=== PATIENT | female | born 1975 | race Caucasian/White ===

== ENCOUNTER 2023-11-09 19:02 | Inpatient (IN) ==
--- NOTE | 2023-11-09 20:07 | Emergency Department Note ---
Impression & Plan Perirectal abscess, Leukocytosis, Chronic diarrhea ED Provider Note NAME: LUIS CARLOS REAGAN AGE: 48 SEX: F : 1975 ARRIVES VIA: Walk-In INFORMANT: Patient ED PROVIDER(S): Jamar Rosario MD CHIEF COMPLAINT: Rectal pain. PLAN: Disposition: Admit MEDICAL DECISION MAKING: The patient is a pleasant 48-year-old woman with a past medical history of anxiety, HTN, HLD, PUD, who presents to emergency department via walk-in for evaluation of worsening left perianal/gluteal pain that has been evolving over the past week where she reports feeling a tearing/burning sensation last week where she felt "something went wrong" when moving her bowels which she admits chronically is loose but does admit to having some straining at that time. Since then she has had worsening pain in the region and thought she felt something sticking out from her anus which she wondered if this could be an external hemorrhoids. However she has felt this pain become worse and due to inability to tolerate this pain presents for evaluation today. She reports she thought she had a fever at one point but did not have a temperature when she measured it. She denies vomiting. She reports she has not moved her bowels since yesterday morning which is atypical for her she will do this several times a day since having her gallbladder out remotely. She denies history of similar symptoms. She denies history of diabetes. On evaluation the patient is uncomfortable no distress, afebrile heart in the 110s and blood pressure 150s/80s. The patient was examined with female RN assisting/hris analyst. Patient has erythema, warmth and tenderness to an approximate 20 cm region of the medial aspect of her left gluteal region extending into the perineum where there is an approximate 7 cm area of induration and underlying fluctuance tender to touch. There is no crepitus. WBC 14.3 K with neutrophil predominance but no left shift. Hemoglobin and platelets within normal limits. Chemistry without metabolic acidosis. Electrolytes LFTs unremarkable. TSH is 4.9 however free T4 within normal limits. hCG negative. UA without evidence of infection. CT of the abdomen pelvis was performed and this demonstrated a 5 x 4.7 x 3.5 cm fluid collection with mild rim enhancement along the medial margin interpreted as probable phlegmon/early abscess. There is moderate surrounding cellulitis. No intrapelvic extension is noted. Likely right lower lobe atelectasis is described. Empiric treatment initiated after obtaining blood cultures with IV Zosyn and daptomycin. Analgesia provided with IV APAP and morphine. Case was discussed with Erickson Perez, general surgery PAC with Dr. Marinelli, general surgery on-call. Appreciate consultation and recommendations. Patient can be admitted to medicine service for IV antibiotics. They will follow the patient for possible surgical drainage in the morning. Patient to remain NPO. Case was discussed with Dr. [facility], who will evaluate the patient for admission. Further management per admitting team. Triage Nursing notes reviewed and agree them. Prior/external medical records reviewed Vital Signs: reviewed Differential diagnosis: Cellulitis, abscess, MRSA infection, necrotizing fasciitis, dermatitis, drug eruption, allergic reaction, as well as other pathologies. ER treatment provided: See below. Diagnostics interpreted by me: ECG: Sinus tachycardia, 105 bpm, no ectopy, nonspecific interventricular conduction block. No overt ST elevation or depression, QTc 507, QRS 126. Cardiac Monitoring: An order for continuous cardiac monitoring was placed and demonstrated Sinus tachycardia, 105 bpm, no ectopy. Laboratory studies: See below Imaging studies: See below Consultation(s): Erickson Perez, general surgery PAC with Dr. Marinelli, general surgery on-call. [facility]. HPI: The patient is a pleasant 48-year-old woman with a past medical history of anxiety, HTN, HLD, PUD, who presents to emergency department via walk-in for evaluation of worsening left perianal/gluteal pain that has been evolving over the past week where she reports feeling a tearing/burning sensation last week where she felt "something went wrong" when moving her bowels which she admits chronically is loose but does admit to having some straining at that time. Since then she has had worsening pain in the region and thought she felt something sticking out from her anus which she wondered if this could be an external hemorrhoids. However she has felt this pain become worse and due to inability to tolerate this pain presents for evaluation today. She reports she thought she had a fever at one point but did not have a temperature when she measured it. She denies vomiting. She reports she has not moved her bowels since yesterday morning which is atypical for her she will do this several times a day since having her gallbladder out remotely. She denies history of similar symptoms. She denies history of diabetes. ROS: See above HPI for pertinent positives & negatives. A total of 10 systems reviewed and were otherwise negative. VITALS:See Below PHYSICAL EXAMINATION: GENERAL: Awake, alert, in no distress HENT: Normocephalic, atraumatic. Oropharynx with dry mucous membranes and otherwise unremarkable. EYES: Normal conjunctiva. Sclera non-icteric. NECK: Supple. No nuchal rigidity. FROM. No JVD. RESPIRATORY: Clear to auscultation. CARDIAC: Tachycardic rate, normal rhythm. Extremities warm and well perfused. Pulses equal. ABDOMEN: Soft, non-distended. No tenderness to palpation. No rebound or guarding. No masses. PERINEUM: Exam with female RN assisting/hris analyst. Erythema, warmth and tenderness to an approximate 20 cm region of the medial aspect of her left gluteal region extending into the perineum where there is an approximate 7 cm area of induration and underlying fluctuance tender to touch. There is no crepitus. MUSCULOSKELETAL: Chest examination reveals no tenderness. The back is symmetrical on inspection without obvious abnormality. There is no CVA tenderness to palpation. No joint edema. LOWER EXTREMITIES: Calves are equal size bilaterally and non-tender. No edema. No discoloration. NEURO: Normal sensorium. No sensory or motor deficits noted. SKIN: No rash or jaundice noted. Jamar Rosario MD Past Med/Surg History Problem List (Updated 11/10/23 @ 00:33 by Jamar Rosario MD) Chronic diarrhea (Acute) Leukocytosis (Acute) Perirectal abscess (Acute) Medical History Body mass index [BMI] 35.0-35.9, adult Stomach ulcer Nicotine dependence, cigarettes, with unspecified nicotine-induced disorders Hypothyroidism Hypertension Surgical History Hx of cholecystectomy Hx of lithotripsy Family History Grandmother (Maternal) Hypertension Diabetes Grandfather (Maternal) Hypertension Mother Hypertension Social History (Updated 11/10/23 @ 01:20 by Jamar Rosario MD) Smoking Status: Current every day smoker Hx Alcohol Use: No Hx Substance Use: No Preferred Language: Emirati Communication Ability: Effective Copy Room Technician Required: No marital status: Single Current Living Situation: Family Feels Safe at Home: Yes Assistive Devices: Glasses Allergies Allergies Allergy/AdvReac Type Severity Reaction Status Date / Time No Known Allergies Allergy Unverified 11/10/23 00:15 Home Meds Home Medications Medication Instructions Recorded Confirmed lorazepam 0.5 mg tablet 0.5 - 1 mg PO HS PRN anxiety 03/29/19 11/10/23 famotidine 20 mg tablet 20 mg PO HS 11/10/23 11/10/23 ibuprofen 200 mg tablet (Advil) 800 mg PO Q4 PRN Pain 11/10/23 11/10/23 losartan 50 mg tablet 50 mg PO DAILY 11/10/23 11/10/23 Results & Data (ED) Vital Signs Vital Signs - 24 hr 11/09/23 19:19 11/09/23 22:04 11/09/23 22:55 Temperature 36.8 C Temperature Source Temporal Artery Scan Pulse Rate 110 H 81 85 Pulse Rate [Apical] Respiratory Rate 18 20 Respiratory Effort / Characteristics Non-Labored Respiratory Depth Normal Blood Pressure 159/85 H 108/72 Blood Pressure [Right Arm] Blood Pressure Mean 109 84 Blood Pressure Mean [Right Arm] Pulse Oximetry 100 95 Oxygen Delivery Method Room Air Sepsis Recent Fever Within 48 Hours No Sepsis New/Unexplained Change in Mental Status No Sepsis Action Taken by Nursing No Action Required 11/09/23 23:01 11/09/23 23:04 Temperature Temperature Source Pulse Rate 86 Pulse Rate [Apical] 86 Respiratory Rate 18 18 Respiratory Effort / Characteristics Respiratory Depth Blood Pressure Blood Pressure [Right Arm] 106/76 Blood Pressure Mean Blood Pressure Mean [Right Arm] 86 Pulse Oximetry 98 98 Oxygen Delivery Method Room Air Sepsis Recent Fever Within 48 Hours Sepsis New/Unexplained Change in Mental Status Sepsis Action Taken by Nursing Laboratory Data Attestation: I reviewed the patient's lab results. 11/09/23 20:30 11/09/23 20:30 Lab Results 11/09/23 11/09/23 Range/Units 20:30 20:48 WBC 14.39 H (4.8-10.8) K/ul RBC 4.22 (4.20-5.40) M/uL Hgb 12.4 (12.0-16.0) g/dl Hct 36.6 L (37.0-47.0) % MCV 86.7 (80.0-100.0) fL MCH 29.4 (25.0-34.0) pg MCHC 33.9 (32.0-36.0) g/dL RDW Std Deviation 40.2 (36.4-46.3) fL RDW Coeff of Alon 12.8 (11.5-14.5) % Plt Count 360 (130-400) K/uL MPV 10.0 (9.4-12.4) fL Immature Gran % (Auto) 0.6 % Neut % (Auto) 80.4 % Lymph % (Auto) 11.8 % [place] % (Auto) 6.2 % Eos % (Auto) 0.7 % Baso % (Auto) 0.3 % Neut # (Auto) 11.58 H (1.40-6.50) K/uL Lymph # (Auto) 1.70 (1.20-3.40) K/uL [place] # (Auto) 0.89 H (0.11-0.59) K/uL Eos # (Auto) 0.10 (0.00-0.50) K/uL Baso # (Auto) 0.04 (0.00-0.20) K/uL Immature Gran # (Auto) 0.08 (0.01-0.20) K/uL Sodium 137 (136-145) mmol/L Potassium 3.3 L (3.5-5.1) mmol/L Chloride 108 H (98-107) mmol/L Carbon Dioxide 22 (21-32) mmol/L Anion Gap 7 (3-11) BUN 8 (6-23) mg/dl Creatinine 0.78 (0.6-1.2) mg/dl Est Cr Clr Drug Dosing 95.6 ml/min Est GFR ( Amer) 102.7 ml/min Est GFR (Non-Af Amer) 88.6 ml/min BUN/Creatinine Ratio 10.3 (10-20) Glucose 85 (70-99(Fasting)) mg/dl Lactate 1.1 (0.4-2.0) mmol/L Calcium 8.9 (8.6-10.3) mg/dl Total Bilirubin 0.4 (0.2-1.0) mg/dl AST 17 (13-39) U/L ALT 17 (7-52) U/L Alkaline Phosphatase 53 (34-104) U/L Total Protein 6.8 (6.0-8.3) gm/dl Albumin 3.9 (3.4-5.0) gm/dl Globulin 2.9 (2.5-4.0) gm/dl Albumin/Globulin Ratio 1.3 (0.9-2) Procalcitonin 0.05 (0-0.5) ng/ml TSH 4.955 H (0.300-4.500) uIu/ml Free T4 0.79 (0.61-1.60) ng/dl HCG, Qual Negative (Negative) Urine Color Yellow Urine Appearance Clear (Clear) Urine pH 6.0 (4.5-7.5) Ur Specific [place] 1.005 (1.000-1.030) Urine Protein Negative (Negative) Urine Glucose (UA) Negative (Negative) Urine Ketones Negative (Negative) Urine Blood Negative (Negative) Urine Nitrite Negative (Negative) Urine Bilirubin Negative (Negative) Urine Urobilinogen Negative (Negative) Ur Leukocyte Esterase Negative (Negative) Administered Medications Sodium Chloride (Nss) 1,000 mls @ 125 mls/hr IV .Q8H JOHAN Stop: 12/10/23 00:24 Last Admin: 11/10/23 00:41 Dose: 125 mls/hr Documented By: RAFI Discontinued Medications Hydromorphone HCl (Hydromorphone Inj 0.5 Mg/0.5 Ml Syr) 0.5 mg IV NOW STA Stop: 11/09/23 23:51 Last Admin: 11/10/23 00:02 Dose: 0.5 mg Documented By: RAFI Sodium Chloride (Nss) 1,000 mls @ 999 mls/hr IV .Q1H1M JOHAN Stop: 11/09/23 21:30 Last Infusion: 11/09/23 22:06 Dose: Infused Documented By: Admin: 11/09/23 20:48 Dose: 999 mls/hr Documented By: LYRIC Acetaminophen (Ofirmev) 1,000 mg in 100 mls @ 400 mls/hr IV NOW STA Stop: 11/09/23 20:34 Last Infusion: 11/09/23 21:17 Dose: Infused Documented By: Admin: 11/09/23 20:42 Dose: 400 mls/hr Documented By: LYRIC Piperacillin Sod/Tazobactam Sod (Zosyn) 4.5 gm in 100 mls @ 200 mls/hr IV NOW ONE Stop: 11/09/23 20:52 Last Infusion: 11/09/23 21:32 Dose: Infused Documented By: Admin: 11/09/23 20:57 Dose: 200 mls/hr Documented By: LYRIC Vancomycin HCl 2,250 mg/ (Sodium Chloride) 545 mls @ 200 mls/hr IV NOW ONE Stop: 11/09/23 23:06 Last Admin: 11/09/23 22:27 Dose: 200 mls/hr Documented By: LYRIC Ioversol (Optiray 320 100ml) 94 ml IV ONCE ONE Stop: 11/09/23 21:58 Last Admin: 11/09/23 21:57 Dose: 94 ml Documented By: RUDDY Ketorolac Tromethamine (Ketorolac 30 Mg/Ml Vial) 30 mg IV NOW ONE Stop: 11/10/23 00:10 Last Admin: 11/10/23 00:36 Dose: 30 mg Documented By: RAFI Morphine Sulfate (Morphine Sulfate 4 Mg/Ml 1 Ml Carp\\Vial) 4 mg IV NOW STA Stop: 11/09/23 20:21 Last Admin: 11/09/23 20:42 Dose: 4 mg Documented By: LYRIC Morphine Sulfate (Morphine Sulfate 4 Mg/Ml 1 Ml Carp\\Vial) 4 mg IV NOW STA Stop: 11/09/23 22:20 Last Admin: 11/09/23 22:25 Dose: 4 mg Documented By: LYRIC Potassium Chloride (Potassium Chloride Crtab 20 Meq Tabcr) 40 meq PO NOW STA Stop: 11/10/23 00:10 Last Admin: 11/10/23 00:36 Dose: 40 meq Documented By: RAFI Imaging Data Radiologist's Impression: Abdomen/Pelvis CT 11/09/23 20:24 Exam(s): CT ABDOMEN + PELVIS With Contrast IV Amt: 94 ml optiray 320 EXAM: CT Abdomen and Pelvis With Intravenous Contrast CLINICAL HISTORY: Reason for exam: left ning-rectal/anal abscess, cellulitis. TECHNIQUE: Axial computed tomography images of the abdomen and pelvis with intravenous contrast. CTDI is 27.73 mGy and DLP is 1683.66 mGy-cm. Automated exposure control was utilized for the study. A dose lowering technique was utilized adhering to the principles of ALARA. CONTRAST: Patient received 94 ml optiray 320 of IV contrast COMPARISON: None. FINDINGS: Lung bases: Mild right lower lobe atelectasis or infiltrate, cannot rule out pneumonia. Liver: Unremarkable. Gallbladder and bile ducts: No ductal dilation. Pancreas: No ductal dilation. Spleen: Unremarkable. Adrenals: Unremarkable. Kidneys and ureters: Subtle hypodensity right upper pole medially, nonspecific, statistically would reflect an early/developing cyst. Neoplasm not excluded. Consider ultrasound confirmation. No pyelonephritis or hydronephrosis. Stomach and bowel: A few fluid levels are seen, though overall the bowel is unremarkable. No obstruction. Appendix: Normal. Intraperitoneal space: No free air or fluid. Bones/joints: No acute fracture. Soft tissues: In the left infra-gluteal subcutaneous fat, there is a 5 x 4.7 x 3.5 cm fluid collection with mild rim enhancement along the medial margin, probable phlegmon/early abscess. Moderate surrounding cellulitis. No intrapelvic extension. Vasculature: No aortic aneurysm. Lymph nodes: No enlarged lymph nodes. Bladder: No stones. Reproductive: Unremarkable as visualized. IMPRESSION: 1. 5 cm fluid collection left medial and inferior buttock, compatible with phlegmon/early abscess. 2. No acute intra-abdominal or intrapelvic abnormality. 3. Mild right lower lobe atelectasis or infiltrate, cannot rule out pneumonia. 4. Hypodensity in the right kidney is nonspecific, statistically would reflect a cyst, though neoplasm not excluded. Ultrasound confirmation may be considered. Electronically signed by: Jennifer Rangel M.D. 11/09/23 22:40 PM Discharge Plan Visit Data Chief Complaint: Rectal Pain Stated Complaint: PARINEAL HERNIA/NOW HANGING BELOW L BUTTOCKS ED Provider: Jamar Rosario Discharge Problem: Perirectal abscess, Leukocytosis, Chronic diarrhea Discharge Instructions Interventions: ED Discharge Assessment Last Done: 11/10/23 00:26 Discharge Problem: Leukocytosis Qualifiers: Leukocytosis type: unspecified Qualified Code(s): D72.829 - Elevated white blood cell count, unspecified
[2023-11-09] MEDS ORDERED: VANCOMYCIN CONSULT ACTIVE PRN (20:23)
[2023-11-09] MEDS: ACETAMINOPHEN 1,000 MG/100 ML VIAL IV STA (20:42)
[2023-11-09] MEDS: MoRPHine SULFATE 4 MG/ML 1 ML CARP\\VIAL IV STA ×2 (20:42→22:25)
[2023-11-09] MEDS: SODIUM CHLORIDE 0.9% 1,000 ML IV SCH (20:48)
[2023-11-09] MEDS: PIPERACILLIN/TAZOBACTAM 4.5 GM/100 ML BAG IV ONE (20:57)
[2023-11-09 21:26] LABS: Appearance Urine Clear (Clear); Bilirubin Urine Negative (Negative); Blood Urine Negative (Negative); Color Urine Yellow; Glucose Urine UA Negative (Negative); Ketones Urine Negative (Negative); Leukocyte Esterase Urine Negative (Negative); Nitrite Urine Negative (Negative); Protein Urine Negative (Negative); Specific Gravity Urine 1.005 (1.000-1.030); Urobilinogen Urine Negative (Negative)
[2023-11-09 21:28] LABS: Albumin Globulin Ratio 1.3 (0.9-2); Albumin Level 3.9 gm/dl (3.4-5.0); BUN Creatinine Ratio 10.3 (10-20); Bilirubin,Total 0.4 mg/dl (0.2-1.0); Calcium 8.9 mg/dl (8.6-10.3); Creatinine Clr Calc Pharmacy 95.6 ml/min; Est GFR (African American) 102.7 ml/min; Est GFR (Non-African American) 88.6 ml/min; Globulin 2.9 gm/dl (2.5-4.0); Potassium 3.3 mmol/L (3.5-5.1); Total Protein 6.8 gm/dl (6.0-8.3)
[2023-11-09 21:30] LABS: Pregnancy Test, Serum Negative (Negative)
[2023-11-09 21:44] LABS: Thyroid Stimulating Hormone 4.955 uIu/ml (0.300-4.500)
[2023-11-09 21:56] LABS: Basophils # (auto) 0.04 K/uL (0.00-0.20); Basophils % (auto) 0.3 %; Eosinophils % (auto) 0.7 %; Hematocrit (blood only) 36.6 % (37.0-47.0); Hemoglobin 12.4 g/dl (12.0-16.0); Immature Granulocytes # (auto) 0.08 K/uL (0.01-0.20); Immature Granulocytes % (auto) 0.6 %; Lymphocytes % (auto) 11.8 %; Mean Corpuscular Hemoglobin 29.4 pg (25.0-34.0); Mean Corpuscular Hgb Conc 33.9 g/dL (32.0-36.0); Mean Corpuscular Volume 86.7 fL (80.0-100.0); Monocytes # (auto) 0.89 K/uL (0.11-0.59); Monocytes % (auto) 6.2 %; Neutrophils # (auto) 11.58 K/uL (1.40-6.50); Neutrophils % (auto) 80.4 %; Platelet Count 360 K/uL (130-400); RDW Coefficient of Variation 12.8 % (11.5-14.5); RDW Standard Deviation 40.2 fL (36.4-46.3); Red Blood Count 4.22 M/uL (4.20-5.40); White Blood Count 14.39 K/ul (4.8-10.8)
[2023-11-09] MEDS: OPTIRAY 320 100ml IV ONE (21:57)
[2023-11-09 22:20] LABS: T4 Free Thyroxine 0.79 ng/dl (0.61-1.60)
[2023-11-09] MEDS: VANCOMYCIN HCL 2,250 MG in SODIUM CHLORIDE 0.9% 500 ML IV ONE (22:27)
--- NOTE | 2023-11-09 22:41 | CT Scan Report ---
Exam(s): CT ABDOMEN + PELVIS With Contrast IV Amt: 94 ml optiray 320 EXAM: CT Abdomen and Pelvis With Intravenous Contrast CLINICAL HISTORY: Reason for exam: left ning-rectal/anal abscess, cellulitis. TECHNIQUE: Axial computed tomography images of the abdomen and pelvis with intravenous contrast. CTDI is 27.73 mGy and DLP is 1683.66 mGy-cm. Automated exposure control was utilized for the study. A dose lowering technique was utilized adhering to the principles of ALARA. CONTRAST: Patient received 94 ml optiray 320 of IV contrast COMPARISON: None. FINDINGS: Lung bases: Mild right lower lobe atelectasis or infiltrate, cannot rule out pneumonia. Liver: Unremarkable. Gallbladder and bile ducts: No ductal dilation. Pancreas: No ductal dilation. Spleen: Unremarkable. Adrenals: Unremarkable. Kidneys and ureters: Subtle hypodensity right upper pole medially, nonspecific, statistically would reflect an early/developing cyst. Neoplasm not excluded. Consider ultrasound confirmation. No pyelonephritis or hydronephrosis. Stomach and bowel: A few fluid levels are seen, though overall the bowel is unremarkable. No obstruction. Appendix: Normal. Intraperitoneal space: No free air or fluid. Bones/joints: No acute fracture. Soft tissues: In the left infra-gluteal subcutaneous fat, there is a 5 x 4.7 x 3.5 cm fluid collection with mild rim enhancement along the medial margin, probable phlegmon/early abscess. Moderate surrounding cellulitis. No intrapelvic extension. Vasculature: No aortic aneurysm. Lymph nodes: No enlarged lymph nodes. Bladder: No stones. Reproductive: Unremarkable as visualized. IMPRESSION: 1. 5 cm fluid collection left medial and inferior buttock, compatible with phlegmon/early abscess. 2. No acute intra-abdominal or intrapelvic abnormality. 3. Mild right lower lobe atelectasis or infiltrate, cannot rule out pneumonia. 4. Hypodensity in the right kidney is nonspecific, statistically would reflect a cyst, though neoplasm not excluded. Ultrasound confirmation may be considered. Electronically signed by: Jennifer Rangel M.D. 11/09/23 22:40 PM
--- NOTE | 2023-11-09 23:17 | Surgery Consultation ---
Date of Consultation November 09, 2023 Assessment & Plan (1) Perirectal abscess: I discussed with the treating emergency room physician and the patient is being admitted on the hospital service. From surgical perspective we recommend the following: Provide analgesics Provide antiemetics Provide IV fluid for hydration Antibiotics in the form of vancomycin and Zosyn have been initiated. These antibiotic should continue. Appropriate cultures have been obtained and antibiotics be tailored based on these results I think would be acceptable for patient have clear liquids at the present time, but she should be made n.p.o. after midnight tonight I am tentatively going to place the patient on the operating room schedule on 11/10/[address] Marinelli to perform incision and drainage of his perirectal abscess. If incision and drainage is performed appropriate cultures of this collection can be obtained as well. At the present time the patient is nontoxic-appearing. She is normotensive without tachycardia or fever. She does exhibit a slight leukocytosis but she does not have an elevated lactic acid level or acute kidney injury. Additional recommendations with forthcoming based on her clinical course as unfolds and the findings of any procedural intervention that is performed Would recommend utilizing only SCDs for DVT prevention, no chemical means until any planned procedures are performed History of Present Illness Reason for Consultation: Perirectal abscess History of Present Illness This is a 48-year-old female who presented to the emergency department [facility] secondary to rectal/buttock pain. The patient notes that approximately 12 days ago she noticed a small lump on the left side of her buttocks near her anus that began shortly after she began her menstrual cycle. Patient notes that she has had a previous cholecystectomy and since that time she has diarrhea in the morning and notes that since this problem again she has been having episodes of diarrhea alternating with periods of constipation. Patient notes that she tried several [id number] remedies such as Preparation H and sitz bath's with no avail in relieving the symptomatology of this structure. She notes over the ensuing 12 days that the area in question is gotten larger and more painful. Patient has not taken her temperature and therefore is unsure if she has had any fevers but has felt warm and cold at times. She denies any rigors. She notes that she is not diabetic and she has never had such an issue like this before. Since arrival to hospital patient has had labs and imaging which independent reviewed. CBC revealed white blood cell count was elevated 14.3. Hemoglobin was normal and hematocrit was slightly low at 36.6. Platelet count was 360,000. Chemistry profile shows sodium is 137 and her potassium was 3.3. BUN and creatinine were both noted to be normal. Lactic acid was nonelevated at 1.1. There is no elevation of patient's LFTs. Urinalysis was not indicative of infection. The patient has undergone a CT scan of the abdomen and pelvis. This showed that patient had a 5 x 4.7 x 3.5 cm fluid collection with some mild rim enhancement along the medial margin of the left infra gluteal area. This collection was compatible with a phlegmon/early abscess. There is no intrapelvic extension of this collection. Of note, the patient has also had a test which is negative. At the time my interview the patient was resting comfortably bed and she was in no distress. Allergies Allergy/AdvReac Type Severity Reaction Status Date / Time No Known Allergies Allergy Unverified 11/10/23 00:15 Home Medications Medication Instructions Recorded Confirmed Type lorazepam 0.5 mg tablet 0.5 - 1 mg PO HS PRN anxiety 03/29/19 11/10/23 History famotidine 20 mg tablet 20 mg PO HS 11/10/23 11/10/23 History ibuprofen 200 mg tablet (Advil) 800 mg PO Q4 PRN Pain 11/10/23 11/10/23 History losartan 50 mg tablet 50 mg PO DAILY 11/10/23 11/10/23 History Patient History Medical History Body mass index [BMI] 35.0-35.9, adult Stomach ulcer Nicotine dependence, cigarettes, with unspecified nicotine-induced disorders Hypothyroidism Hypertension Surgical History Hx of cholecystectomy Hx of lithotripsy Family History Grandmother (Maternal) Hypertension Diabetes Grandfather (Maternal) Hypertension Mother Hypertension Social History (Updated 11/10/23 @ 01:20 by Jamar Rosario MD) Smoking Status: Current every day smoker Hx Alcohol Use: No Hx Substance Use: No Preferred Language: Yemeni Communication Ability: Effective Associate Product Manager Required: No marital status: Single Current Living Situation: Family Other Information That Helps Us Care for You: No Feels Safe at Home: Yes Safety Concerns: Feels Safe At This Time Assistive Devices: None Physical Exam Physical Exam: With a female nurse market research specialist present I examined the patient's rectal area. On the left medial part of patient's buttocks just lateral to the anus she had a large area of induration that was noted to be erythematous with some slight warmth. There is no crepitus noted in the soft tissue. There is no open areas or areas of drainage. The area was exquisitely tender to palpation. I did not perform a digital rectal exam secondary to pain the patient was experiencing. Constitutional: WD/WN, vitals as above Eyes: Wears glasses ENMT: Ears: no hearing impairment and no external ear abnormality Mouth: no oropharynx abnormality Neck: trachea midline Respiratory: normal respiratory effort; no respiratory distress and no labored breathing Cardiovascular: Rate/Rhythm: regular rate and regular rhythm Gastrointestinal (Abdomen): Abdomen is soft and nontender Musculoskeletal: No calf tenderness Skin: no rashes Neurologic: moves all extremities Psychiatric: A+Ox3, euthymic affect Results & Data Vital Signs (Past 12 Hours) Vital Signs Temp Pulse Pulse Resp BP BP Pulse Ox 11/09/23 23:04 86 18 98 11/09/23 23:01 86 18 106/76 98 11/09/23 22:55 85 11/09/23 22:04 81 20 108/72 95 11/09/23 19:19 36.8 C 110 H 18 159/85 H 100 O2 Del Method 11/09/23 23:04 11/09/23 23:01 Room Air 11/09/23 22:55 11/09/23 22:04 11/09/23 19:19 Room Air PG Care Time/CCT Total # of Minutes Spent Total Time Spent with Patient: Total time spent is greater than 50% in coordination of care (as documented) at patient's floor/unit and/or counseling patient: Coding Level of Care Code 97608 IN/OBS CONSULT LVL 5,80M Diagnoses Perirectal abscess K61.1
[2023-11-10] MEDS: HYDROmorphone INJ 0.5 MG/0.5 ML SYR IV STA (00:02)
[2023-11-10] MEDS ORDERED: POLYETHYLENE (MIRALAX) 17 GM PACK PO PRN (00:25)
[2023-11-10] MEDS ORDERED: ACETAMINOPHEN 1,000 MG/100 ML VIAL IV PRN (00:25)
--- NOTE | 2023-11-10 00:28 | History & Physical Report ---
Date of Service November 09, 2023 Assessment & Plan (1) Perirectal abscess: Plan: 48-year-old female with past medical history significant for hypertension, Kidney stones, presents with pain in her rectal region and found to have a perirectal abscess. Patient states about 11 days ago she had diarrhea and strained .Then she noticed some lump joy the anal region and she thought it could be hemorrhoids. And she was applying lidocaine and she was doing sitz baths but was not helping. Since Thursday the pain got worse and the swelling was getting bigger. And since Thursday 4 AM she has severe pain in the buttock region not able to ambulate because of pain and feeling short of breath because of pain. She did not move her bowels since last Thursday which is unusual because she generally moves 4-5 bowel movements every day. No nausea. No chest pain. no headache. No blurred vision. No runny nose or sore throat or cough. Feeling hot and cold. No abdominal pain. When she was moving bowels she has some mild discomfort but no significant pain. Has mild discomfort while micturating. Denies any hematuria. Did not noticed any blood in the stools. Currently hemodynamics are okay. perirectal abscess Ct scan:5 cm fluid collection left medial and inferior buttock, compatible with phlegmon/early abscess. empiric antibiotics IV Zosyn and IV vancomycin. Pain control. N.p.o., IV fluids. Surgery consult. Hypertension. On losartan. Will monitor. Abnormal EKG. Will follow repeat EKG. DVT prophylaxis. SCDs. Disposition. Medical floor. Full code. History of Present Illness Chief Complaint: Johanna Rectal abscess Primary Care Provider: Bronson Kern 48-year-old female with past medical history significant for hypertension, Kidney stones, presents with pain in her rectal region and found to have a perirectal abscess. Patient states about 11 days ago she had diarrhea and strained .Then she noticed some lump joy the anal region and she thought it could be hemorrhoids. And she was applying lidocaine and she was doing sitz baths but was not helping. Since Thursday the pain got worse and the swelling was getting bigger. And since Thursday 4 AM she has severe pain in the buttock region not able to ambulate because of pain and feeling short of breath because of pain. She did not move her bowels since last Thursday which is unusual because she generally moves 4-5 bowel movements every day. No nausea. No chest pain. no headache. No blurred vision. No runny nose or sore throat or cough. Feeling hot and cold. No abdominal pain. When she was moving bowels she has some mild discomfort but no significant pain. Has mild discomfort while micturating. Denies any hematuria. Did not noticed any blood in the stools. Currently hemodynamics are okay. Past medical history. As mentioned above past surgical history. Surgery for kidney stones. social history. Smokes half pack a day for last 30 years. No alcohol use. Family history. Father had cancer. Mother had uterine/ovarian cancer. Allergies Allergy/AdvReac Type Severity Reaction Status Date / Time No Known Allergies Allergy Unverified 11/10/23 00:15 Home Medications Medication Instructions Recorded Confirmed Type lorazepam 0.5 mg tablet 0.5 - 1 mg PO HS PRN anxiety 03/29/19 11/10/23 History famotidine 20 mg tablet 20 mg PO HS 11/10/23 11/10/23 History ibuprofen 200 mg tablet (Advil) 800 mg PO Q4 PRN Pain 11/10/23 11/10/23 History losartan 50 mg tablet 50 mg PO DAILY 11/10/23 11/10/23 History Past Med/Surg History Problem List (Updated 11/10/23 @ 00:33 by Jamar Rosario MD) Chronic diarrhea (Acute) Leukocytosis (Acute) Perirectal abscess (Acute) Medical History Body mass index [BMI] 35.0-35.9, adult Stomach ulcer Nicotine dependence, cigarettes, with unspecified nicotine-induced disorders Hypothyroidism Hypertension Surgical History Hx of cholecystectomy Hx of lithotripsy Family History Grandmother (Maternal) Hypertension Diabetes Grandfather (Maternal) Hypertension Mother Hypertension Social History (Updated 11/10/23 @ 01:20 by Jamar Rosario MD) Smoking Status: Current every day smoker Hx Alcohol Use: No Hx Substance Use: No Preferred Language: Iraqi Communication 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 ENT- oropharynx clear Neck- supple, no JVD. Lungs- clear to auscultation no wheezing or crackles. Heart- regular rate and rhythm; no murmur, no gallop. Abdomen- normal bowel sounds, soft, no distension. Tenderness in perianal and buttock region Extremities- no pretibial edema, no erythema seen. Neuro- alert, oriented x 3; PERRL no facial palsy; no dysarthria; moves extremities. Results & Data Results & Data Vital Signs (Past 12 Hours) Vital Signs Temp Pulse Pulse Resp BP BP Pulse Ox 11/09/23 23:04 86 18 98 11/09/23 23:01 86 18 106/76 98 11/09/23 22:55 85 11/09/23 22:04 81 20 108/72 95 11/09/23 19:19 36.8 C 110 H 18 159/85 H 100 O2 Del Method 11/09/23 23:04 11/09/23 23:01 Room Air 11/09/23 22:55 11/09/23 22:04 11/09/23 19:19 Room Air Diagnostic Findings Laboratory Results WBC 14.39 K/ul (4.8-10.8) H 11/09/23 20:30 RBC 4.22 M/uL (4.20-5.40) 11/09/23 20:30 Hgb 12.4 g/dl (12.0-16.0) 11/09/23 20:30 Hct 36.6 % (37.0-47.0) L 11/09/23 20:30 MCV 86.7 fL (80.0-100.0) 11/09/23 20:30 MCH 29.4 pg (25.0-34.0) 11/09/23 20:30 MCHC 33.9 g/dL (32.0-36.0) 11/09/23 20:30 RDW Std Deviation 40.2 fL (36.4-46.3) 11/09/23 20:30 RDW Coeff of Alon 12.8 % (11.5-14.5) 11/09/23 20:30 Plt Count 360 K/uL (130-400) 11/09/23 20:30 MPV 10.0 fL (9.4-12.4) 11/09/23 20:30 Immature Gran % (Auto) 0.6 % 11/09/23 20:30 Neut % (Auto) 80.4 % 11/09/23 20:30 Lymph % (Auto) 11.8 % 11/09/23 20:30 [place] % (Auto) 6.2 % 11/09/23 20:30 Eos % (Auto) 0.7 % 11/09/23 20:30 Baso % (Auto) 0.3 % 11/09/23 20:30 Neut # (Auto) 11.58 K/uL (1.40-6.50) H 11/09/23 20:30 Lymph # (Auto) 1.70 K/uL (1.20-3.40) 11/09/23 20:30 [place] # (Auto) 0.89 K/uL (0.11-0.59) H 11/09/23 20:30 Eos # (Auto) 0.10 K/uL (0.00-0.50) 11/09/23 20:30 Baso # (Auto) 0.04 K/uL (0.00-0.20) 11/09/23 20:30 Immature Gran # (Auto) 0.08 K/uL (0.01-0.20) 11/09/23 20:30 Sodium 137 mmol/L (136-145) 11/09/23 20:30 Potassium 3.3 mmol/L (3.5-5.1) L 11/09/23 20:30 Chloride 108 mmol/L (98-107) H 11/09/23 20:30 Carbon Dioxide 22 mmol/L (21-32) 11/09/23 20:30 Anion Gap 7 (3-11) 11/09/23 20:30 BUN 8 mg/dl (6-23) 11/09/23 20:30 Creatinine 0.78 mg/dl (0.6-1.2) 11/09/23 20:30 Est Cr Clr Drug Dosing 95.6 ml/min 11/09/23 20:30 Est GFR ( Amer) 102.7 ml/min 11/09/23 20:30 Est GFR (Non-Af Amer) 88.6 ml/min 11/09/23 20:30 BUN/Creatinine Ratio 10.3 (10-20) 11/09/23 20:30 Glucose 85 mg/dl (70-99(Fasting)) 11/09/23 20:30 Lactate 1.1 mmol/L (0.4-2.0) 11/09/23 20:30 Calcium 8.9 mg/dl (8.6-10.3) 11/09/23 20:30 Total Bilirubin 0.4 mg/dl (0.2-1.0) 11/09/23 20:30 AST 17 U/L (13-39) 11/09/23 20:30 ALT 17 U/L (7-52) 11/09/23 20:30 Alkaline Phosphatase 53 U/L (34-104) 11/09/23 20:30 Total Protein 6.8 gm/dl (6.0-8.3) 11/09/23 20:30 Albumin 3.9 gm/dl (3.4-5.0) 11/09/23 20:30 Globulin 2.9 gm/dl (2.5-4.0) 11/09/23 20:30 Albumin/Globulin Ratio 1.3 (0.9-2) 11/09/23 20:30 Procalcitonin 0.05 ng/ml (0-0.5) 11/09/23 20:30 TSH 4.955 uIu/ml (0.300-4.500) H 11/09/23 20:30 Free T4 0.79 ng/dl (0.61-1.60) 11/09/23 20:30 HCG, Qual Negative (Negative) 11/09/23 20:30 Urine Color Yellow 11/09/23 20:48 Urine Appearance Clear (Clear) 11/09/23 20:48 Urine pH 6.0 (4.5-7.5) 11/09/23 20:48 Ur Specific [place] 1.005 (1.000-1.030) 11/09/23 20:48 Urine Protein Negative (Negative) 11/09/23 20:48 Urine Glucose (UA) Negative (Negative) 11/09/23 20:48 Urine Ketones Negative (Negative) 11/09/23 20:48 Urine Blood Negative (Negative) 11/09/23 20:48 Urine Nitrite Negative (Negative) 11/09/23 20:48 Urine Bilirubin Negative (Negative) 11/09/23 20:48 Urine Urobilinogen Negative (Negative) 11/09/23 20:48 Ur Leukocyte Esterase Negative (Negative) 11/09/23 20:48 Impressions Abdomen/Pelvis CT 11/09/23 20:24 Exam(s): CT ABDOMEN + PELVIS With Contrast IV Amt: 94 ml optiray 320 EXAM: CT Abdomen and Pelvis With Intravenous Contrast CLINICAL HISTORY: Reason for exam: left johanna-rectal/anal abscess, cellulitis. TECHNIQUE: Axial computed tomography images of the abdomen and pelvis with intravenous contrast. CTDI is 27.73 mGy and DLP is 1683.66 mGy-cm. Automated exposure control was utilized for the study. A dose lowering technique was utilized adhering to the principles of ALARA. CONTRAST: Patient received 94 ml optiray 320 of IV contrast COMPARISON: None. FINDINGS: Lung bases: Mild right lower lobe atelectasis or infiltrate, cannot rule out pneumonia. Liver: Unremarkable. Gallbladder and bile ducts: No ductal dilation. Pancreas: No ductal dilation. Spleen: Unremarkable. Adrenals: Unremarkable. Kidneys and ureters: Subtle hypodensity right upper pole medially, nonspecific, statistically would reflect an early/developing cyst. Neoplasm not excluded. Consider ultrasound confirmation. No pyelonephritis or hydronephrosis. Stomach and bowel: A few fluid levels are seen, though overall the bowel is unremarkable. No obstruction. Appendix: Normal. Intraperitoneal space: No free air or fluid. Bones/joints: No acute fracture. Soft tissues: In the left infra-gluteal subcutaneous fat, there is a 5 x 4.7 x 3.5 cm fluid collection with mild rim enhancement along the medial margin, probable phlegmon/early abscess. Moderate surrounding cellulitis. No intrapelvic extension. Vasculature: No aortic aneurysm. Lymph nodes: No enlarged lymph nodes. Bladder: No stones. Reproductive: Unremarkable as visualized. IMPRESSION: 1. 5 cm fluid collection left medial and inferior buttock, compatible with phlegmon/early abscess. 2. No acute intra-abdominal or intrapelvic abnormality. 3. Mild right lower lobe atelectasis or infiltrate, cannot rule out pneumonia. 4. Hypodensity in the right kidney is nonspecific, statistically would reflect a cyst, though neoplasm not excluded. Ultrasound confirmation may be considered. Electronically signed by: Jennifer Rangel M.D. 11/09/23 22:40 PM ECG Additional Comments: ECG. Sinus tachycardia to 105. Possible left atrial lodgment. Nonspecific intraventricular conduction block. Code Status & VTE Plan VTE Prophylaxis Plan VTE Prophylaxis will be ordered: Yes
[2023-11-10] MEDS: KETOROLAC 30 MG/ML VIAL IV ONE (00:36)
[2023-11-10] MEDS: POTASSIUM CHLORIDE CRTAB 20 MEQ TABCR PO STA (00:36)
[2023-11-10] MEDS: SODIUM CHLORIDE 0.9% 1,000 ML IV SCH (00:41)
[2023-11-10] MEDS: PIPERACILLIN/TAZOBACTAM 4.5 GM in DEXTROSE 5% MINI-B 100 ML IV SCH (01:41)
[2023-11-10] MEDS: LORazepam 0.5 MG TAB PO PRN (03:36)
[2023-11-10] MEDS: HYDROmorphone INJ 0.5 MG/0.5 ML SYR IV PRN (03:37)
[2023-11-10] MEDS: LORazepam 0.5 MG TAB PO STA (05:48)
[2023-11-10 06:04] LABS: Basophils # (auto) 0.02 K/uL (0.00-0.20); Basophils % (auto) 0.2 %; Eosinophils # (auto) 0.13 K/uL (0.00-0.50); Eosinophils % (auto) 1.3 %; Hematocrit (blood only) 33.8 % (37.0-47.0); Hemoglobin 11.4 g/dl (12.0-16.0); Immature Granulocytes # (auto) 0.05 K/uL (0.01-0.20); Immature Granulocytes % (auto) 0.5 %; Lymphocytes # (auto) 1.12 K/uL (1.20-3.40); Lymphocytes % (auto) 10.9 %; Mean Corpuscular Hemoglobin 29.6 pg (25.0-34.0); Mean Corpuscular Hgb Conc 33.7 g/dL (32.0-36.0); Mean Corpuscular Volume 87.8 fL (80.0-100.0); Mean Platelet Volume 9.7 fL (9.4-12.4); Monocytes % (auto) 6.8 %; Neutrophils # (auto) 8.28 K/uL (1.40-6.50); Neutrophils % (auto) 80.3 %; Platelet Count 302 K/uL (130-400); RDW Coefficient of Variation 12.7 % (11.5-14.5); RDW Standard Deviation 40.6 fL (36.4-46.3); Red Blood Count 3.85 M/uL (4.20-5.40)
[2023-11-10 06:24] LABS: BUN Creatinine Ratio 9.1 (10-20); Calcium 7.7 mg/dl (8.6-10.3); Creatinine Clr Calc Pharmacy 96.9 ml/min; Est GFR (African American) 104.3 ml/min; Magnesium 1.8 mg/dl (1.7-2.4); Potassium 3.6 mmol/L (3.5-5.1)
--- NOTE | 2023-11-10 07:37 | Pharmacy Report ---
Pharmacy PK ABX Note - Date of Service November 10, 2023 - Assessment and Plan Assessment 48 year old F receiving empiric vancomycin and piperacillin/tazobactam for treatment of perirectal abscess. Pertinent microbiologic data includes: blood cultures x 2 pending. Plan is for OR today for I&D of abscess. Broad spectrum antimicrobial regimen appropriate at this time. Renal function appears to be at/near baseline. Leukocytosis improved overnight (WBC: 14 K -> 10 K) Plan Vancomycin * Loading dose: 2250 mg IV x 1 * Maintenance dose: 1250 mg IV every 12 hours * Regimen is predicted to achieve target AUC/MEL of 400-600 mg/L.hr * Random level ordered for: 11/12/23 Pharmacy will continue to follow and will adjust dose/frequency as necessary. Thank you. Pharmacy has transitioned to AUC monitoring for vancomycin. AUC/MEL is the preferred PK/PD target and is associated with decreased risk of nephrotoxicity compared to traditional trough targets.
[2023-11-10] MEDS: VANCOMYCIN HCL 1,250 MG in SODIUM CHLORIDE 0.9% 250 ML IV SCH (08:49)
--- NOTE | 2023-11-10 10:13 | Ultrasound Report ---
RENAL ULTRASOUND HISTORY: hypodense lesion in right kidney COMPARISON: CT 11/09/2023 FINDINGS: Right kidney: 11.6 x 5.8 x 5.8 cm. No hydronephrosis. The previously noted 1.6 cm ill-defined hypoden se focus within the medial upper pole right kidney is not seen by ultrasound. Possible cyst of the in ferior pole right kidney measuring 8 mm. Normal corticomedullary differentiation and cortical thickne ss. Left kidney: 10.3 x 5.9 x 5.5 cm. No hydronephrosis. Normal corticomedullary differentiation and shweta ical thickness. Bladder: Partial distention. The bilateral ureteral jets were identified. IMPRESSION: 1. The indeterminate 1.6 cm hypodense lesion of the superior pole right kidney seen by CT is not visu alized by ultrasound. Therefore correlation with a nonemergent follow-up MRI of the abdomen is recomm ended to further evaluate and to exclude a small renal cell carcinoma. 2. No hydronephrosis. ACT 112: Negative or not required by law. Electronically signed by: Danny Reynoso M.D. 11/10/2023 10:12 AM
--- NOTE | 2023-11-10 10:45 | Electrocardiogram Report ---
Test Reason : Blood Pressure : / mmHG Vent. Rate : 105 BPM Atrial Rate : 105 BPM P-R Int : 140 ms QRS Dur : 126 ms QT Int : 384 ms P-R-T Axes : 049 056 022 degrees QTc Int : 507 ms Sinus tachycardia Possible Left atrial enlargement Right bundle branch block Abnormal ECG Confirmed by Jose Snowden ([id number]) on 11/10/2023 10:45:20 AM Referred By: REFERRED SELF Confirmed By:Petros Snowden
[2023-11-10] MEDS: LOSARTAN POTASSIUM 50 MG TAB PO SCH (10:51)
[2023-11-10] MEDS: KETOROLAC TROMETHAMINE 15 MG/ML VIAL IV PRN (10:55)
--- NOTE | 2023-11-10 12:20 | Electrocardiogram Report ---
Test Reason : Blood Pressure : / mmHG Vent. Rate : 080 BPM Atrial Rate : 080 BPM P-R Int : 120 ms QRS Dur : 128 ms QT Int : 394 ms P-R-T Axes : 064 090 001 degrees QTc Int : 454 ms Normal sinus rhythm Right bundle branch block Abnormal ECG When compared with ECG of 09-NOV-2023 20:56, (unconfirmed) Right bundle branch block has replaced Non-specific intra-ventricular conduction block Confirmed by Jose Snowden ([id number]) on 11/10/2023 12:20:27 PM Referred By: REFERRED SELF Confirmed By:Petros Snowden
--- NOTE | 2023-11-10 13:40 | Hospitalist Progress Note ---
Date of Service November 10, 2023 Assessment & Plan (1) Perirectal abscess: Plan: 48-year-old female with past medical history significant for hypertension, Kidney stones, presents with pain in her rectal region and found to have a perirectal abscess.\ Perirectal abscess CT abdomen and pelvis on admission:5 cm fluid collection left medial and inferior buttock, compatible with phlegmon/early abscess. Empiric antibiotics IV Zosyn and IV vancomycin. Pain control. N.p.o., IV fluids. Surgery to do I&D today Right renal lesion CT abdomen and pelvis on admission showed hypodensity in right kidney. Ultrasound renal showed indeterminant 1.6 cm hypodense lesion of superior pole of right kidney. Recommended MRI abdomen MRI abdomen ordered Patient may require urology evaluation based on MRI abdomen finding. Discussed with patient; agreeable with the plan Hypertension. On losartan. Will monitor. DVT prophylaxis. SCDs. Disposition. Medical floor. Full code. Discussed with patient's sister at bedside. Please note the above document was generated using voice recognition software. It may contain grammatical, syntax or spelling errors. Any formal questions or concerns about the content, text or information contained within the body of this dictation should be directly addressed to the provider for clarification Admission and Anticipated Discharge Date Admission Date: November 09, 2023 Subjective Patient seen and examined at bedside She reports pain at the abscess site No significant events overnight Her sister is also at bedside Review of Systems Review of Systems: All systems reviewed & are unremarkable except as noted in Subjective Physical Exam Physical Exam: Constitutional: WD/WN, vitals as above, NAD, sitting up in bed, pleasant, conversing easily Respiratory: normal respiratory effort, lungs clear to auscultation, no wheeze, rales, rhonchi. Normal insp/exp effort, no accessory muscle use Cardiovascular: RRR, no murmur, no edema Vessels: no JVD or carotid bruit Chest: normal inspection of chest Abdomen: normal bowel sounds, soft, nontender. Tenderness in left buttock along with induration and surrounding erythema Musculoskeletal: no cyanosis or clubbing, extremities motor strength 5/5 Skin: no rashes, warm and dry normal turgor Neurologic: PERRL, EOMI, accommodation nl, no face palsy, no dysarthria CN's II- XI intact bilaterally and moves all extremities Psychiatric: A+Ox3, euthymic affect Results & Data Results & Data Vital Signs (Past 12 Hours) Vital Signs Temp Pulse Resp BP Pulse Ox O2 Del Method 11/10/23 11:50 36.4 C L 90 20 133/85 96 Room Air 11/10/23 07:22 37.0 C 86 16 108/70 93 Room Air 11/10/23 04:45 87 22 147/84 H 98 Room Air
[2023-11-10] MEDS ORDERED: PROPOFOL IV EMULSION 10 MG/ML 20 ML VIAL IV ONE (13:41)
[2023-11-10] MEDS ORDERED: fentaNYL citrate PF 100 MCG/2 ML VIAL ONE (13:41)
[2023-11-10] MEDS ORDERED: MIDAZOLAM HCL 1 MG/ML 2ML VIAL ONE (13:41)
[2023-11-10] MEDS ORDERED: DEXAMETHASONE SOD INJ 4 MG/ML VIAL ONE (13:41)
[2023-11-10] MEDS ORDERED: LIDOCAINE 2% 2 ML VIAL/AMP(20MG/ML) INFIL ONE (13:41)
[2023-11-10] MEDS ORDERED: ONDANSETRON INJ 2 MG/ML 2 ML VIAL ONE (13:41)
--- NOTE | 2023-11-10 13:49 | History & Physical Bridge Note ---
Date of Service November 10, 2023 History & Physical Bridge Note I have examined the patient, reviewed the History & Physical and in the interval since the performance of the History & Physical I have noted the following changes of clinical significance: no changes noted on exam very large/indurated area on left buttock. very tender. warm to touch. CT reviewed. will proceed with incision and drainage of ning rectal abcess. discussed risks/options. questions answered. pt agrees with plan.
--- NOTE | 2023-11-10 14:19 | Anesthesiology Consultation ---
Date of Service November 10, 2023 Assessment & Plan Consults Requested medical & cardiac Pulmonary History Surgery Operation Date: 11/10/23 12:10 Proposed Procedures p Incision and Drainage of Perirectal Abscess with Exam Under Anesthesia - Kirill Marinelli DO Height/Weight Height: 5 ft 5 in Weight: 90 kg Allergies Allergy/AdvReac Type Severity Reaction Status Date / Time No Known Allergies Allergy Verified 11/10/23 14:01 Medications Home Medications Medication Instructions Recorded Confirmed Last Taken lorazepam 0.5 mg tablet 0.5 - 1 mg PO HS PRN anxiety 03/29/19 11/10/23 Unknown famotidine 20 mg tablet 20 mg PO HS 11/10/23 11/10/23 Unknown ibuprofen 200 mg tablet (Advil) 800 mg PO Q4 PRN Pain 11/10/23 11/10/23 Unknown losartan 50 mg tablet 50 mg PO DAILY 11/10/23 11/10/23 Unknown Active Medications Generic Name Dose Route Start Last Admin Trade Name Freq PRN Reason Stop Dose Admin Hydromorphone HCl 0.5 mg 11/10/23 00:25 11/10/23 13:19 Hydromorphone Inj 0.5 Mg/0.5 Ml Syr IV 11/24/23 00:24 0.5 mg Q3H PRN Administration Mod-Sev Pain (Scale 4-10) Piperacillin Sod/Tazobactam 100 mls @ 25 mls/hr 11/10/23 02:00 11/10/23 10:51 Sod 4.5 gm/ Dextrose IV 11/17/23 01:59 25 mls/hr Q8H JOHAN Administration Protocol Sodium Chloride 1,000 mls @ 125 mls/hr 11/10/23 00:25 11/10/23 08:52 Nss IV 12/10/23 00:24 125 mls/hr .Q8H JOHAN Administration Vancomycin HCl 1,250 mg/ 275 mls @ 200 mls/hr 11/10/23 09:00 11/10/23 10:52 Sodium Chloride IV 11/17/23 08:59 Infused Q12H JOHAN Infusion Ketorolac Tromethamine 15 mg 11/10/23 00:25 11/10/23 10:55 Ketorolac Tromethamine 15 Mg/Ml Vial IV 11/15/23 00:24 15 mg Q6H PRN Administration Pain Lorazepam 0.5 - 1 mg 11/10/23 00:25 11/10/23 03:36 Lorazepam 0.5 Mg Tab PO 12/10/23 00:24 0.5 mg HS PRN Administration anxiety Losartan Potassium 50 mg 11/10/23 09:00 11/10/23 10:51 Losartan Potassium 50 Mg Tab PO 12/10/23 08:59 Not Given DAILY JOHAN NPO Date Last Intake of Fluids: 11/09/23 Time Last Intake of Fluids: 23:59 Last Intake of Fluids Comment: ice chips this AM Date Last Intake of Solids: 11/09/23 Time Last Intake of Solids: 14:00 Past Medical History Medical History Body mass index [BMI] 35.0-35.9, adult Stomach ulcer Nicotine dependence, cigarettes, with unspecified nicotine-induced disorders Hypothyroidism Hypertension Past Family History Family History Grandmother (Maternal) Hypertension Diabetes Grandfather (Maternal) Hypertension Mother Hypertension Past Surgical History Surgical History Hx of cholecystectomy Hx of lithotripsy Social History Smoking Status: Current every day smoker Hx Alcohol Use: No Hx Substance Use: No Physical Exam Vital Signs Last Vital Signs Temp 36.9 C 11/10/23 14:01 Pulse 98 H 11/10/23 14:01 Resp 20 11/10/23 14:01 BP 150/79 H 11/10/23 14:01 Pulse Ox 95 11/10/23 14:01 O2 Del Method Room Air 11/10/23 14:01 Testing Laboratory Results 11/10/23 05:28 11/10/23 05:28 Urine Color Yellow 11/09/23 20:48 Urine Appearance Clear (Clear) 11/09/23 20:48 Urine pH 6.0 (4.5-7.5) 11/09/23 20:48 Ur Specific [place] 1.005 (1.000-1.030) 11/09/23 20:48 Urine Protein Negative (Negative) 11/09/23 20:48 Urine Glucose (UA) Negative (Negative) 11/09/23 20:48 Urine Ketones Negative (Negative) 11/09/23 20:48 Urine Nitrite Negative (Negative) 11/09/23 20:48 Ur Leukocyte Esterase Negative (Negative) 11/09/23 20:48
[2023-11-10] MEDS ORDERED: HYDROmorphone INJ 2 MG/ML SYR/VIAL IV PRN (14:31)
[2023-11-10] MEDS ORDERED: ePHEDrine sulfate 50 MG/ML AMP IV PRN (14:31)
[2023-11-10] MEDS ORDERED: ATROPINE SULFATE 0.1 MG/ML 10ML SYR IV PRN (14:31)
[2023-11-10] MEDS ORDERED: ONDANSETRON INJ 2 MG/ML 2 ML VIAL IV PRN (14:31)
[2023-11-10] MEDS ORDERED: SUGAMMADEX SODIUM 200 MG/2 ML VIAL IV ONE ×2 (15:03→15:13)
[2023-11-10] MEDS ORDERED: ROCURONIUM BROMIDE 10 MG/ML 5 ML VIAL IV ONE (15:03)
[2023-11-10] MEDS ORDERED: SUCCINYLCHOLINE CHLORIDE 20 MG/ML 10 ML VIAL IV ONE (15:03)
[2023-11-10] MEDS ORDERED: ALBUTEROL HFA 8 GM INHALER INH ONE (15:03)
[2023-11-10] MEDS: BUPIVACAINE/EPINEPHRINE 0.5% MPF 1:200,000 30 ML VIAL ONE (15:17)
[2023-11-10] MEDS: GELATIN SPONGE SZ 100 ONE (15:18)
--- NOTE | 2023-11-10 15:21 | Operative Report ---
PG Post Operative Report Pre & Post Diagnosis Operation Date: 11/10/23 12:10 Pre-Op Diagnosis: ning rectal abscess Post-Op Diagnosis: ning rectal abscess I identified the patient and participated in the time-out.: Yes Procedure Operation Date: 11/10/23 12:10 Actual Procedures p Incision and Drainage of Perirectal Abscess with Exam Under Anesthesia(Not Applicable) - Kirill Marinelli DO Surgeon Kirill Marinelli DO Straight Edger luis alberto Minaya Estimated Blood Loss 10 Findings Consistent with Post-Op Diagnosis Specimens fluid for gram stain/culture Description of Procedure After informed consent was obtained the patient was taken the operating room and placed in supine position. After successful placement of a laryngeal mask ai rway the patient was placed in a high lithotomy position. The perianal region was sterilely prepped and draped in usual fashion. I used a 15 blade scalpel to make a linear incision directly over the palpable abscess. Finger fractionation was then used to enter what would be a very large abscess cavity. It did track towards the rectum however no definitive fistula was identified. Large amount of linares purulent foul-smelling fluid was encountered. A portion was sent to the lab for Gram stain culture and sensitivity. After suctioning out the entire cavity it was thoroughly irrigated with sterile saline. Half-inch Newton Hamilton drain was placed into the cavity and stitched to the skin using 2-0 nylon. A sterile dressing was applied. The patient was awakened placed in supine position extubated and transferred to recovery in stable condition. My physician property assistant was present for the entire case and was instrumental in assisting in all aspects of the case. I attest to the content of the Intraoperative Record and any orders documented therein. Any exceptions are noted below.
[2023-11-10] MEDS: ALBUT/IPRATROP 3MG/0.5MG NEB 3 ML VIAL NEB STA (15:31)
[2023-11-10] MEDS ORDERED: NICOTINE POLACRILEX 2 MG GUM MT PRN (15:37)
--- NOTE | 2023-11-10 16:04 | Anesthesiology Progress Note ---
Date of Service November 10, 2023 Anesthesia Post Procedure Vital Signs Vital Signs: Temp Pulse Pulse Pulse Resp BP BP 11/10/23 15:55 37.2 C 101 H 19 11/10/23 15:45 103 H 21 11/10/23 15:40 11/10/23 15:35 109 H 20 11/10/23 15:28 37 C 115 H 18 11/10/23 14:01 36.9 C 98 H 20 150/79 H 11/10/23 11:50 36.4 C L 90 20 133/85 11/10/23 07:22 37.0 C 86 16 108/70 11/10/23 04:45 87 22 147/84 H 11/10/23 01:00 83 18 11/09/23 23:04 86 18 11/09/23 23:01 86 18 11/09/23 22:55 85 11/09/23 22:04 81 20 108/72 11/09/23 19:19 36.8 C 110 H 18 159/85 H BP Pulse Ox O2 Del Method O2 Flow Rate 11/10/23 15:55 111/70 94 Nasal Cannula 2 11/10/23 15:45 100/77 98 Nebulizer 7 11/10/23 15:40 120/76 11/10/23 15:35 109/66 99 Nebulizer 7 11/10/23 15:28 98/69 L 100 Nebulizer 7 11/10/23 14:01 95 Room Air 11/10/23 11:50 96 Room Air 11/10/23 07:22 93 Room Air 11/10/23 04:45 98 Room Air 11/10/23 01:00 97 Room Air 11/09/23 23:04 98 11/09/23 23:01 106/76 98 Room Air 11/09/23 22:55 11/09/23 22:04 95 11/09/23 19:19 100 Room Air Pain Intensity Buttock: Pain Intensity: 5 Transfer of Care Handoff Completed per policy Notes Mental Status: alert / awake / arousable Patient Amnestic to Procedure: Yes Nausea / Vomiting: adequately controlled Pain: adequately controlled Airway Patency, RR, SpO2: stable & adequate BP & HR: stable & adequate Hydration State: stable & adequate Anesthetic Complications: no major complications apparent
[2023-11-10] MEDS ORDERED: oxyCODONE HCL IR 5 MG TAB (IMMEDIATE RELEASE) PO PRN (16:24)
[2023-11-10] MEDS ORDERED: ACETAMINOPHEN 325 MG TAB PO PRN (16:24)
[2023-11-10] MEDS: ALBUT/IPRATROP 3MG/0.5MG NEB 3 ML VIAL ONE (16:26)
[2023-11-10] MEDS: NICOTINE 21 MG/24 HR TDSY TD SCH (16:29)
[2023-11-10] MEDS: LACTATED RINGER'S 1,000 ML IV SCH ×2 (16:35→17:15)
[2023-11-10] MEDS: FAMOTIDINE 20 MG TAB PO SCH (21:03)
[2023-11-11] MEDS: GADOBUTROL 65ML VIAL IV ONE (01:16)
[2023-11-11 07:45] VITALS: BP 101/69; RESP 18; TEMP 98.2; O2SAT 95
[2023-11-11 07:48] LABS: Basophils # (auto) 0.02 K/uL (0.00-0.20); Basophils % (auto) 0.2 %; Hematocrit (blood only) 30.3 % (37.0-47.0); Hemoglobin 10.1 g/dl (12.0-16.0); Immature Granulocytes # (auto) 0.09 K/uL (0.01-0.20); Immature Granulocytes % (auto) 0.7 %; Lymphocytes # (auto) 0.84 K/uL (1.20-3.40); Lymphocytes % (auto) 6.7 %; Mean Corpuscular Hemoglobin 29.4 pg (25.0-34.0); Mean Corpuscular Hgb Conc 33.3 g/dL (32.0-36.0); Mean Corpuscular Volume 88.1 fL (80.0-100.0); Monocytes # (auto) 0.63 K/uL (0.11-0.59); Neutrophils # (auto) 11.04 K/uL (1.40-6.50); Neutrophils % (auto) 87.4 %; Platelet Count 299 K/uL (130-400); RDW Coefficient of Variation 13.1 % (11.5-14.5); RDW Standard Deviation 41.9 fL (36.4-46.3); Red Blood Count 3.44 M/uL (4.20-5.40); White Blood Count 12.62 K/ul (4.8-10.8)
[2023-11-11 08:08] LABS: BUN Creatinine Ratio 11.5 (10-20); Calcium 7.8 mg/dl (8.6-10.3); Creatinine Clr Calc Pharmacy 95.6 ml/min; Est GFR (African American) 102.7 ml/min; Est GFR (Non-African American) 88.6 ml/min; Potassium 3.9 mmol/L (3.5-5.1)
--- NOTE | 2023-11-11 09:50 | Surgery Progress Note ---
Date of Service November 11, 2023 Assessment & Plan (1) Perirectal abscess: Plan: doing well ok for d/c. discussed wound care with pt. f/u next thursday for drain removal Admission and Anticipated Discharge Date Admission Date: November 09, 2023 Subjective pt seen. feeling much better. +sig drainage ( expected) Physical Exam Skin: dressing in place. minimal saturation Results & Data Vital Signs (Past 12 Hours) Vital Signs Temp Pulse Resp BP BP Pulse Ox O2 Del Method 11/11/23 07:45 36.8 C 63 18 101/69 95 Room Air 11/10/23 23:41 36.7 C 103 H 16 158/75 H 94 Room Air PG Care Time/CCT Total # of Minutes Spent Total Time Spent with Patient: Total time spent is greater than 50% in coordination of care (as documented) at patient's floor/unit and/or counseling patient: Coding Level of Care Code 80904 Post Operative Follow-Up Diagnoses Perirectal abscess K61.1
--- NOTE | 2023-11-11 10:46 | Magnetic Resonance Report ---
MRI OF THE ABDOMEN COMBO CLINICAL HISTORY: Right renal lesion. COMPARISON STUDY: Abdominal CT dated 11/09/2023. TECHNIQUE: MRI of the abdomen is performed transverse T1 and T2-weighted sequences in the axial and c oronal planes. Contrast enhanced sequences were acquired following the IV administration of 9 cc of Gadavist. Subtraction imaging and diffusion-weighted imaging was utilized. The examination is degrad ed by motion artifact. FINDINGS: Lower chest: Atelectasis is noted at the lung bases. No pleural effusion is identified. The heart is normal in size. Liver: The liver is normal in size, contour, and signal intensity. No intrahepatic biliary ductal dil atation is seen. The hepatic veins and portal veins are patent. Gallbladder: Surgically absent. Spleen: Normal in size and signal intensity. Pancreas: Unremarkable. Adrenal glands: Unremarkable. Kidneys: The kidneys are normal in size and without hydronephrosis. The kidneys enhance and excrete s ymmetrically. There is a 1.4 cm T2 hyperintense T1 slightly hypointense lesion within the medial inte rpolar right kidney seen on axial fiesta image #22. This there is difficult to assess due to small si ze and motion, but appears to show contrast enhancement on the subtraction images. No additional enha ncing lesion is suggested in either kidney. Abdominal aorta: Normal in course and caliber. Bowel: Visualized portions of the small bowel and colon show no evidence of obstruction. Peritoneum: There is no abdominal ascites. There is a fat-containing umbilical hernia. Lymphadenopathy: None. Skeletal structures: Visualized skeletal structures times are normal marrow signal intensity. IMPRESSION: 1. There is a 1.4 cm lesion in the medial interpolar right kidney as above. This is difficult to asse ss due to small size and motion artifact but appears to show postcontrast enhancement. This is suspic ious for a small renal neoplasm. Nonemergent/outpatient follow-up with urology is recommended, as is a follow-up examination in 6 months time for reassessment. 2. No additional enhancing lesion is suggested in either kidney. 3. Additional findings as above. ACT 112: Positive. There are findings on this exam that require communication between the performing entity and the patient following Patient Test Result Information Act ([place] Act 112) guidelines. Electronically signed by: Wisam Larry M.D. 11/11/2023 10:45 AM
[2023-11-11] MEDS: oxyCODONE HCL IR 5 MG TAB (IMMEDIATE RELEASE) PO PRN (11:18)
--- NOTE | 2023-11-11 13:41 | Communication Note ---
Date of Service: November 11, 2023 Pt seen at bedside moises drain out of wound , pt requesting drain be removed or trimmed and states that drain falls out every time she goes to the bathroom. [place] drain removed at this time, instructed patient to pack wound with the edge of a piece of gauze and change daily or if soiled. Call office with questions or concerns after d/c.
--- NOTE | 2023-11-11 14:39 | Discharge Summary ---
Discharge Summary Date of Service November 11, 2023 Principal Dx & Hospital Course #1 = Principal Diagnosis (1) Perirectal abscess: (2) Right renal mass: Plan Patient was admitted to the hospital. She was placed on IV antibiotics for perirectal abscess. Imaging done in the ED also revealed a possible right renal mass. This was followed up with ultrasound and then subsequently MRI to further define this right renal mass. It is proxy 1.5 cm in diameter. Difficult to quantify and identify further however there is concern that it could be a early renal cell carcinoma. Recommending repeat imaging and outpatient urology evalua tion. As far as a perirectal abscess is concerned surgical consultation was obtained. They evaluated the patient took the patient for incision and drainage. Her postoperative course was uneventful. Pain was controlled. In the operative room they did place a [place] drain. This was then subsequently accidentally removed by the patient. It was then completely removed by the surgeon. They are recommending packing the abscess cavity with gauze and covering with a dry gauze dressing. This was reviewed with the patient. Spent extensive period of time at the bedside with the patient and family explaining MRI results. Explaining need for ongoing follow-up and evaluation outpatient with urology. Also reviewed antibiotics and pain control and plan for surgical follow-up. We will coordinate outpatient neurology appointment for the patient to have ongoing follow-up for the right renal mass. She will follow-up with surgery next week for monitoring of the wound. She will be discharged on oral antibiotics and pain medications and follow-up with her PCP as well. Notes For Next Care Provider Follow-up with urology and/or further imaging for right renal mass Medication Changes From Visit Augmentin for treatment of infection Oxycodone for pain control Admission HPI Per Admitting Provider 48-year-old female with past medical history significant for hypertension, Kidney stones, presents with pain in her rectal region and found to have a perirectal abscess. Patient states about 11 days ago she had diarrhea and strained .Then she noticed some lump joy the anal region and she thought it could be hemorrhoids. And she was applying lidocaine and she was doing sitz baths but was not helping. Since Thursday the pain got worse and the swelling was getting bigger. And since Thursday morning 4 AM she has severe pain in the buttock region not able to ambulate because of pain and feeling short of breath because of pain. She did not move her bowels since last Thursday which is unusual because she generally moves 4-5 bowel movements every day. No nausea. No chest pain. no headache. No blurred vision. No runny nose or sore throat or cough. Feeling hot and cold. No abdominal pain. When she was moving bowels she has some mild discomfort but no significant pain. Has mild discomfort while micturating. Denies any hematuria. Did not noticed any blood in the stools. Currently hemodynamics are okay. Past medical history. As mentioned above past surgical history. Surgery for kidney stones. social history. Smokes half pack a day for last 30 years. No alcohol use. Family history. Father had cancer. Mother had uterine/ovarian cancer. Admission Exam Per Admitting Provider I refer you to the history and physical Discharge Exam Constitutional: Alert, nontoxic HEENT: Mucous membranes moist. Lungs: Clear to auscultation, decreased, no wheezes rales or rhonchi CV: S1-S2, regular Abdomen: Soft, nontender, nondistended Extremities: No significant edema Neuro: No focal deficits Psych: Cooperative, normal mood Updated Medication List Medication Instructions Recorded Confirmed Type lorazepam 0.5 mg tablet 0.5 - 1 mg PO HS PRN anxiety 03/29/19 11/10/23 History famotidine 20 mg tablet 20 mg PO HS 11/10/23 11/10/23 History ibuprofen 200 mg tablet (Advil) 800 mg PO Q4 PRN Pain 11/10/23 11/10/23 History losartan 50 mg tablet 50 mg PO DAILY 11/10/23 11/10/23 History amoxicillin 875 mg-potassium 1 tab PO BID #14 tabs 11/11/23 Rx clavulanate 125 mg tablet nicotine 21 mg/24 hr daily 1 patch transdermal QAM #14 ea 11/11/23 Rx transdermal patch (Nicoderm CQ) oxycodone 5 mg tablet 10 mg (2 x 5 mg) PO Q4H PRN pain 11/11/23 Rx #20 tabs Hospital Stay Data Consultations 11/09/23 22:59 ED Decision to Admit Stat 11/10/23 08:00 Consult General Surgery Routine Procedures Performed Operation Date: 11/10/23 12:10 Actual Procedures p Incision and Drainage of Perirectal Abscess with Exam Under Anesthesia(Not Applicable) - Kirill Marinelli, Diagnostic Imagining Performed 11/09/23 20:24 CT abd pelvis IV con only Stat 11/10/23 14:00 US Renal Bladder [US renal/blad retro comp] Routine 11/11/23 08:00 MRI Abdomen [MR abdomen wo/w con] Routine Reviewed imaging, laboratory and diagnostic studies. Pertinent findings as below. MRI of abdomen showing and confirming 1.4 centimeter right renal lesion WBCs 12.6, improved Hemoglobin 10.1, stable Glucose 167 Wound and blood cultures no significant growth to date Pending Results Patient Have Any Pending Studies at Discharge: No Discharge Instructions Given to Patient (Per Discharging Provider) pack your wound with the edge of dry gauze and change dressing daily or if soiled. Total Time Total Time Spent Total Time Spent (In Minutes): 40
[2023-11-11 15:21] VITALS: PULSE 100
[2023-11-12] MEDS ORDERED: VANCOMYCIN LEVEL ONE (08:30)
== END 2023-11-11 15:30 | disposition home or self-care (01) | DRG 395 ==
LOC: ED 19:02 → SUATTDRO 23:57 → EDINP 23:57 → 2N 11-10 04:51

== ENCOUNTER 2024-04-04 19:49 | Inpatient (IN) ==
[2024-04-04 20:20] LABS: Basophils # (auto) 0.04 K/uL (0.00-0.20); Basophils % (auto) 0.3 %; Eosinophils % (auto) 0.7 %; Hematocrit (blood only) 40.8 % (37.0-47.0); Hemoglobin 13.9 g/dl (12.0-16.0); Immature Granulocytes # (auto) 0.07 K/uL (0.01-0.20); Immature Granulocytes % (auto) 0.5 %; Lymphocytes % (auto) 9.2 %; Mean Corpuscular Hemoglobin 29.4 pg (25.0-34.0); Mean Corpuscular Hgb Conc 34.1 g/dL (32.0-36.0); Mean Corpuscular Volume 86.4 fL (80.0-100.0); Mean Platelet Volume 9.2 fL (9.4-12.4); Monocytes # (auto) 0.59 K/uL (0.11-0.59); Monocytes % (auto) 3.9 %; Neutrophils # (auto) 13.05 K/uL (1.40-6.50); Neutrophils % (auto) 85.4 %; Platelet Count 429 K/uL (130-400); RDW Coefficient of Variation 13.2 % (11.5-14.5); RDW Standard Deviation 41.4 fL (36.4-46.3); Red Blood Count 4.72 M/uL (4.20-5.40); White Blood Count 15.25 K/ul (4.8-10.8)
[2024-04-04 20:37] LABS: Albumin Globulin Ratio 1.4 (0.9-2); Albumin Level 4.6 gm/dl (3.4-5.0); BUN Creatinine Ratio 14.4 (10-20); Bilirubin,Total 0.4 mg/dl (0.2-1.0); Calcium 10.5 mg/dl (8.6-10.3); Globulin 3.3 gm/dl (2.5-4.0); Potassium 3.4 mmol/L (3.5-5.1); Total Protein 7.9 gm/dl (6.0-8.3)
[2024-04-04] MEDS: OPTIRAY 320 100ml IV ONE (21:50)
[2024-04-04 21:57] LABS: Appearance Urine Cloudy (Clear); Bacteria Urine Automated None Seen (None Seen); Bilirubin Urine Negative (Negative); Blood Urine Negative (Negative); Cast Urine Automated 0-2 /lpf (0-2); Color Urine Yellow; Glucose Urine UA Negative (Negative); Ketones Urine Trace (Negative); Leukocyte Esterase Urine Negative (Negative); Nitrite Urine Negative (Negative); Protein Urine Negative (Negative); Specific Gravity Urine 1.034 (1.000-1.030); Urobilinogen Urine Negative (Negative); WBC Urine Automated 0-5 /hpf (0-5)
[2024-04-04 22:08] LABS: Calcium Oxalate Crystals Urine Present (None Prsent)
[2024-04-04 22:10] LABS: RBC Urine Automated 0-2 /hpf (0-2)
[2024-04-04] MEDS: ONDANSETRON INJ 2 MG/ML 2 ML VIAL IV STA (22:22)
[2024-04-04] MEDS: MoRPHine SULFATE 4 MG/ML 1 ML CARP\\VIAL IV STA (22:22)
[2024-04-04] MEDS ORDERED: VANCOMYCIN CONSULT ACTIVE PRN (22:25)
--- NOTE | 2024-04-04 22:36 | Emergency Department Note ---
Impression & Plan Perirectal abscess, Tachycardia, Left buttock pain ED Provider Note CHIEF COMPLAINT: Left buttock, perirectal pain x 1 week HISTORY OF PRESENT ILLNESS: This 48-year-old female patient presents to the emergency department via private vehicle for evaluation of left buttock pain which is localized more toward the rectum over the past week. The patient states symptoms started about 7 days ago. She states that since that time, the pain has moved from more of the generalized left buttock and localized more centrally. The patient states that she is concerned that her rectum will rupture because it seems to be localizing closer to the rectum. The patient denies any purulent discharge. She did have a perirectal abscess which was incised and drained several months ago by Dr. Marinelli. She had a drain placed and states the abscess seem to heal without difficulty. The patient states that there were no inciting factors prior to this. She did contact the surgery office last week and was referred to her primary care provider or the emergency department to get started on antibiotics. The patient was started on Bactrim and states that that did seem to help with the more generalized discomfort, but the pain did not resolve. The patient denies any fever. She has had chills and sweats. She denies any nausea or vomiting. No diarrhea or constipation. Patient states that symptoms feel exactly like they did in the summer. History provided by: Patient REVIEW OF SYSTEMS: A 10 system review of systems was performed with positives and pertinent negatives listed in the history of present illness. All other systems were reviewed and are negative. ALLERGIES: latex PHYSICAL EXAM: VITALS: Vitals are noted on the nurse's note and reviewed by myself. GENERAL: This is a 48-year-old female, in no acute distress, nondiaphoretic, well-developed well-nourished. SKIN: There is an erythematous, indurated area which is approximately the size of a baseball on the left buttock just anterior to the anus. There is no clear anal involvement. The indurated area does not extend to the perineum. Capillary refill less than 2 seconds. Significant tenderness to palpation in this area. HEAD: Normocephalic atraumatic. EYES: Conjunctivae without injection, sclerae without icterus. NECK: Supple without nuchal rigidity. No lymphadenopathy. No JVD. HEART: Regular rate and rhythm without murmurs gallops or rubs. LUNGS: Clear to auscultation bilaterally without wheezes, rales or rhonchi. No retractions or accessory muscle use. ABDOMEN: Positive bowel sounds x 4. Soft, nontender, without masses or organomegaly. Morales sign negative. No guarding or rebound tenderness. MUSCULOSKELETAL: No muscle atrophy, erythema, or edema noted. Full range of motion without joint tenderness in all extremities. No tenderness to palpation. Normal gait. Strength 5/5 throughout. NEURO: Patient was alert and oriented to person place and time. No focal neurological deficits. An order was placed for continuous traffic monitor specialist. The monitor showed a normal sinus rhythm at a ventricular rate of 92 bpm, per my interpretation. Imaging as interpreted by myself and the radiologist revealed a large left buttock/perianal abscess, with radiologist interpretation as above. I agree with the radiologist's findings as based upon my independent interpretation. EMERGENCY DEPARTMENT COURSE: Patient was seen and evaluated as above. The patient presents to the emergency department for left buttock pain and inflammation. The patient is concern for a perirectal abscess, she has had 1 in the past with similar symptoms. There is no fever. She is tachycardic on initial evaluation. The patient is not hypotensive. Patient does follow with Dr. Marinelli. She has been on Bactrim for the past week without relief of her symptoms. On examination, the patient does have large indurated and fluctuant area noted on the left buttock in the area of previous incision site with no active bleeding or drainage. IV access was obtained, labs are drawn. Labs are reviewed. The patient does have a leukocytosis of 15,000. No anemia or thrombocytopenia. Renal, hepatic function and electrolytes without significant abnormality. Urinalysis with trace ketones and epithelial cells. No clear evidence of infection. Given the patient's history and examination findings, I did recommend treatment with IV antibiotics. The patient was medicated with IV vancomycin and Zosyn at this time. She was medicated with morphine and Zofran for pain and nausea. CT imaging was completed and reviewed by myself and radiologist as noted. This was concerning for a large left buttock/perirectal abscess as noted. Please see radiologist report. I did consult with Erickson Perez PA-C regarding this patient. He recommends admitting the patient to medicine due to the infection and surgery will consult. I did discuss the case with the dry cleaning manager. I discussed the case with Dr. Ugalde, [facility] hospitalist physician. He did agree to evaluate the patient for admission. Please see hospitalist and surgery dictation regarding ongoing management and final disposition of this patient. Case was discussed with the attending physician. This visit is during a period of high volume and high acuity in the emergency department. I attest that I have personally reviewed the patient medication list. I attest that I have reviewed the patient's blood pressure and it was found to be elevated. Suspect this to be situational in nature, but referred to hospitalist team for further management. GCS: 15 In the evaluation and treatment of this patient the following differential diagnoses were entertained: Perirectal abscess, perianal abscess, pilonidal abscess, cellulitis, malignancy, among others The chart was completed utilizing [employer] Speech voice recognition software. Grammatical errors, random word insertions, pronoun errors, and incomplete sentences are an occasional consequence of this system due to software limitations, ambient noise, and hardware issues. Any formal questions or concerns about the content, text, or information contained within the body of this dictation should be directly addressed to the provider for clarification. Past Med/Surg History Problem List (Updated 04/05/24 @ 03:13 by Rissa Quiles PA-C) Left buttock pain (Acute) Tachycardia (Acute) Sebaceous cyst Rupture of radial collateral ligament of thumb Sprain of ulnar collateral ligament of interphalangeal joint of thumb History of incision and drainage (11/10/23) Incision and Drainage of Perirectal Abscess with Exam Under Anesthesia(Not Applicable) - Kirill Marinelli DO Right renal mass Perirectal abscess (Acute) Medical History Chronic diarrhea Body mass index [BMI] 35.0-35.9, adult Stomach ulcer Nicotine dependence, cigarettes, with unspecified nicotine-induced disorders Hypothyroidism Hypertension Surgical History Hx of cholecystectomy Hx of lithotripsy Family History Grandmother (Maternal) Hypertension Diabetes Grandfather (Maternal) Hypertension Mother Hypertension Social History Smoking Status: Current every day smoker Hx Alcohol Use: No Hx Substance Use: No Preferred Language: Maori Communication Ability: Effective 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 marital status: Single Current Living Situation: Family Feels Safe at Home: Yes Assistive Devices: None Allergies Allergies Allergy/AdvReac Type Severity Reaction Status Date / Time latex Allergy Mild Verified 02/15/24 09:56 Home Meds Home Medications Medication Instructions Recorded Confirmed lorazepam 0.5 mg tablet 0.5 - 1 mg PO HS PRN anxiety 03/29/19 04/05/24 famotidine 20 mg tablet 20 mg PO HS 11/10/23 04/05/24 ibuprofen 200 mg tablet (Advil) 800 mg PO Q4 PRN Pain 11/10/23 04/05/24 losartan 50 mg tablet 50 mg PO DAILY 11/10/23 04/05/24 Results & Data (ED) Vital Signs Vital Signs - 24 hr 04/04/24 19:51 04/04/24 21:21 04/04/24 21:29 Temperature 36.6 C 36.6 C Temperature Source Temporal Artery Scan Oral Pulse Rate 121 H 100 H Pulse Rate [Apical] 107 H Respiratory Rate 18 18 Respiratory Effort / Characteristics Non-Labored Non-Labored Respiratory Depth Normal Normal Respiratory Pattern Regular Blood Pressure 189/117 H Blood Pressure [Right Arm] 167/89 H Blood Pressure Mean 141 Blood Pressure Mean [Right Arm] 115 Pulse Oximetry 99 95 Oxygen Delivery Method Room Air Room Air Sepsis Recent Fever Within 48 Hours No Sepsis New/Unexplained Change in Mental Status N/A Sepsis Action Taken by Nursing No Action Required 04/04/24 22:01 04/04/24 22:30 04/05/24 00:17 Temperature Temperature Source Pulse Rate 100 H 88 112 H Pulse Rate [Apical] Respiratory Rate 20 20 16 Respiratory Effort / Characteristics Respiratory Depth Respiratory Pattern Blood Pressure 150/105 H 142/76 H 131/87 Blood Pressure [Right Arm] Blood Pressure Mean 124 112 101 Blood Pressure Mean [Right Arm] Pulse Oximetry 98 96 98 Oxygen Delivery Method Room Air Room Air Room Air Sepsis Recent Fever Within 48 Hours Sepsis New/Unexplained Change in Mental Status Sepsis Action Taken by Nursing 04/05/24 00:30 Temperature Temperature Source Pulse Rate 93 H Pulse Rate [Apical] Respiratory Rate 20 Respiratory Effort / Characteristics Respiratory Depth Respiratory Pattern Blood Pressure 122/66 Blood Pressure [Right Arm] Blood Pressure Mean 83 Blood Pressure Mean [Right Arm] Pulse Oximetry 97 Oxygen Delivery Method Room Air Sepsis Recent Fever Within 48 Hours Sepsis New/Unexplained Change in Mental Status Sepsis Action Taken by Nursing Laboratory Data 04/04/24 20:00 04/04/24 20:00 Lab Results 04/04/24 04/04/24 04/04/24 Range/Units 20:00 21:24 23:10 WBC 15.25 H (4.8-10.8) K/ul RBC 4.72 (4.20-5.40) M/uL Hgb 13.9 (12.0-16.0) g/dl Hct 40.8 (37.0-47.0) % MCV 86.4 (80.0-100.0) fL MCH 29.4 (25.0-34.0) pg MCHC 34.1 (32.0-36.0) g/dL RDW Std Deviation 41.4 (36.4-46.3) fL RDW Coeff of Alon 13.2 (11.5-14.5) % Plt Count 429 H (130-400) K/uL MPV 9.2 L (9.4-12.4) fL Immature Gran % (Auto) 0.5 % Neut % (Auto) 85.4 % Lymph % (Auto) 9.2 % Howell % (Auto) 3.9 % Eos % (Auto) 0.7 % Baso % (Auto) 0.3 % Neut # (Auto) 13.05 H (1.40-6.50) K/uL Lymph # (Auto) 1.40 (1.20-3.40) K/uL Howell # (Auto) 0.59 (0.11-0.59) K/uL Eos # (Auto) 0.10 (0.00-0.50) K/uL Baso # (Auto) 0.04 (0.00-0.20) K/uL Immature Gran # (Auto) 0.07 (0.01-0.20) K/uL Sodium 137 (136-145) mmol/L Potassium 3.4 L (3.5-5.1) mmol/L Chloride 103 (98-107) mmol/L Carbon Dioxide 24 (21-32) mmol/L Anion Gap 10 (3-11) BUN 14 (6-23) mg/dl Creatinine 0.97 (0.6-1.2) mg/dl Est Cr Clr Drug Dosing 73.0 ml/min eGFR 71.19 BUN/Creatinine Ratio 14.4 (10-20) Glucose 111 H (70-99(Fasting)) mg/dl Lactate 0.8 (0.4-2.0) mmol/L Calcium 10.5 H (8.6-10.3) mg/dl Phosphorus 3.5 (2.5-4.9) mg/dl Magnesium 1.8 (1.7-2.4) mg/dl Total Bilirubin 0.4 (0.2-1.0) mg/dl AST 14 (13-39) U/L ALT 14 (7-52) U/L Alkaline Phosphatase 66 (34-104) U/L Total Protein 7.9 (6.0-8.3) gm/dl Albumin 4.6 (3.4-5.0) gm/dl Globulin 3.3 (2.5-4.0) gm/dl Albumin/Globulin Ratio 1.4 (0.9-2) Urine Color Yellow Urine Appearance Cloudy A (Clear) Urine pH 6.0 (4.5-7.5) Ur Specific Ponder 1.034 H (1.000-1.030) Urine Protein Negative (Negative) Urine Glucose (UA) Negative (Negative) Urine Ketones Trace H (Negative) Urine Blood Negative (Negative) Urine Nitrite Negative (Negative) Urine Bilirubin Negative (Negative) Urine Urobilinogen Negative (Negative) Ur Leukocyte Esterase Negative (Negative) Urine WBC (Auto) 0-5 (0-5) /hpf Urine RBC (Auto) 0-2 (0-2) /hpf U Hyaline Cast (Auto) 0-2 (0-2) /lpf U Epithel Cells (Auto) 11-20 H (0-2) /hpf Urine Bacteria (Auto) None Seen (None Seen) Calcium Oxalate Crystal Present A (None Prsent) Administered Medications Acetaminophen (Acetaminophen 500 Mg Tab) 500 mg PO Q6H PRN PRN Reason: fever/pain Stop: 05/05/24 00:42 Last Admin: 04/05/24 01:14 Dose: 500 mg Documented By: MBL Lorazepam (Lorazepam 0.5 Mg Tab) 0.5 mg PO Q6H PRN PRN Reason: Anxiety Stop: 05/05/24 00:37 Last Admin: 04/05/24 01:14 Dose: 0.5 mg Documented By: SHRADDHA Oxycodone HCl (Oxycodone Hcl Ir 5 Mg Tab (Immediate Release)) 5 - 10 mg PO QID PRN PRN Reason: Pain Stop: 04/19/24 00:42 Last Admin: 04/05/24 01:50 Dose: 10 mg Documented By: SHRADDHA Discontinued Medications Calcium Carbonate (Calcium Carbonate 500 Mg Chewable Tab) 500 mg PO Q8H PRN PRN Reason: Indigestion Stop: 05/05/24 00:00 Last Admin: 04/05/24 00:17 Dose: 500 mg Documented By: PAOLO Sodium Chloride (Nss) 500 mls @ 999 mls/hr IV .Q31M ONE Stop: 04/04/24 22:55 Last Infusion: 04/05/24 00:45 Dose: Infused Documented By: Admin: 04/04/24 23:17 Dose: 999 mls/hr Documented By: SHRADDHA Vancomycin HCl 2,000 mg/ (Sodium Chloride) 540 mls @ 200 mls/hr IV NOW ONE Stop: 04/05/24 01:06 Last Admin: 04/05/24 00:55 Dose: 200 mls/hr Documented By: SHRADDHA Piperacillin Sod/Tazobactam Sod (Zosyn) 4.5 gm in 100 mls @ 200 mls/hr IV NOW ONE; Protocol Stop: 04/04/24 22:54 Last Infusion: 04/05/24 00:45 Dose: Infused Documented By: Admin: 04/04/24 23:15 Dose: 200 mls/hr Documented By: SHRADDHA Magnesium Sulfate/Dextrose (Magnesium Sulfate / D5w) 1 gm in 100 mls @ 50 mls/hr IV ONE ONE Stop: 04/05/24 02:37 Last Admin: 04/05/24 01:21 Dose: 50 mls/hr Documented By: SHRADDHA Famotidine (Pepcid 20mg Iv Push) 20 mg in 5 mls @ 2.5 mls/min IV NOW STA Stop: 04/05/24 01:41 Last Admin: 04/05/24 01:50 Dose: 2.5 mls/min Documented By: SHRADDHA Ioversol (Optiray 320 100ml) 94 ml IV ONCE ONE Stop: 04/04/24 21:51 Last Admin: 04/04/24 21:50 Dose: 94 ml Documented By: RUDDY Morphine Sulfate (Morphine Sulfate 4 Mg/Ml 1 Ml Carp\Vial) 4 mg IV NOW STA Stop: 04/04/24 22:10 Last Admin: 04/04/24 22:22 Dose: 4 mg Documented By: SHRADDHA Morphine Sulfate (Morphine Sulfate 4 Mg/Ml 1 Ml Carp\Vial) 4 mg IV NOW STA Stop: 04/05/24 00:13 Last Admin: 04/05/24 00:17 Dose: 4 mg Documented By: PAOLO Ondansetron HCl (Ondansetron Inj 2 Mg/Ml 2 Ml Vial) 4 mg IV NOW STA Stop: 04/04/24 22:10 Last Admin: 04/04/24 22:22 Dose: 4 mg Documented By: SHRADDHA Potassium Chloride (Potassium Chloride Crtab 20 Meq Tabcr) 40 meq PO NOW STA Stop: 04/05/24 00:39 Last Admin: 04/05/24 01:14 Dose: 40 meq Documented By: SHRADDHA Imaging Data Radiologist's Impression: Abdomen/Pelvis CT 04/04/24 20:32 Exam(s): CT ABDOMEN + PELVIS With Contrast IV Amt: 94 ML OPTIRAY 320 EXAM: CT Abdomen and Pelvis With Intravenous Contrast CLINICAL HISTORY: Reason for exam: rectal pain, ?abscess. TECHNIQUE: Axial computed tomography images of the abdomen and pelvis with intravenous contrast. CTDI is 28.14 mGy and DLP is 1960.13 mGy-cm. Automated exposure control was utilized for the study. A dose lowering technique was utilized adhering to the principles of ALARA. CONTRAST: Patient received 94 ML OPTIRAY 320 of IV contrast COMPARISON: No relevant prior studies available. FINDINGS: Lung bases: No consolidation. ABDOMEN: Liver: The liver is enlarged. Gallbladder and bile ducts: The patient is status post cholecystectomy.. No ductal dilation. Pancreas: No mass. No ductal dilation. Spleen: No splenomegaly. Adrenals: No mass. Kidneys and ureters: There is a 1.5 cm inhomogeneous lesion in the right kidney. There is an 8 mm lucency within the right kidney. No hydronephrosis. Stomach and bowel: The stomach is distended containing retained foodstuffs. There is air and stool noted in the colon.. PELVIS: Appendix: Unremarkable CT scan appearance noted the appendix.. Bladder: No calculi are noted within the bladder.. Reproductive: There are 2 lucencies in the left adnexa measuring 1.2 and 2.3 cm in size. ABDOMEN and PELVIS: Intraperitoneal space: No free air. No significant fluid collection. Bones/joints: There are mild degenerative changes in the spine.. Soft tissues: There is a 5.6 x 5.2 x 7.9 cm fluid collection in the subcutaneous fat of the medial aspect of the left buttocks. It contains small bubbles of air. There are surrounding inflammatory changes. Vasculature: No abdominal aortic aneurysm. Lymph nodes: No enlarged lymph nodes. IMPRESSION: There is a 5.6 x 5.2 x 7.9 cm fluid collection in the subcutaneous fat of the medial aspect of the left buttocks. It contains small bubbles of air. There are surrounding inflammatory changes. This appears to represent a perianal abscess. There are possible 2 left adnexal cysts. Hepatomegaly. There is a 1.5 cm partially enhancing lesion in the right kidney. Cannot exclude a renal cell carcinoma. There is a possible right renal cyst. Electronically signed by: Sotero Sandoval MD 04/05/24 00:06 AM Discharge Plan Visit Data Chief Complaint: Rectal Pain Stated Complaint: ABCESS, JESUSITA-ANAL ED Provider: Shady Watson ED Midlevel Provider: Rissa Quiles Discharge Problem: Perirectal abscess, Tachycardia, Left buttock pain Patient Disposition: Admitted As Inpatient Discharge Instructions Interventions: ED Discharge Assessment Last Done: 04/05/24 02:06
[2024-04-04] MEDS: PIPERACILLIN/TAZOBACTAM 4.5 GM/100 ML BAG IV ONE (23:15)
[2024-04-04] MEDS: SODIUM CHLORIDE 0.9% 500 ML IV ONE (23:17)
--- NOTE | 2024-04-05 00:06 | CT Scan Report ---
Exam(s): CT ABDOMEN + PELVIS With Contrast IV Amt: 94 ML OPTIRAY 320 EXAM: CT Abdomen and Pelvis With Intravenous Contrast CLINICAL HISTORY: Reason for exam: rectal pain, ?abscess. TECHNIQUE: Axial computed tomography images of the abdomen and pelvis with intravenous contrast. CTDI is 28.14 mGy and DLP is 1960.13 mGy-cm. Automated exposure control was utilized for the study. A dose lowering technique was utilized adhering to the principles of ALARA. CONTRAST: Patient received 94 ML OPTIRAY 320 of IV contrast COMPARISON: No relevant prior studies available. FINDINGS: Lung bases: No consolidation. ABDOMEN: Liver: The liver is enlarged. Gallbladder and bile ducts: The patient is status post cholecystectomy.. No ductal dilation. Pancreas: No mass. No ductal dilation. Spleen: No splenomegaly. Adrenals: No mass. Kidneys and ureters: There is a 1.5 cm inhomogeneous lesion in the right kidney. There is an 8 mm lucency within the right kidney. No hydronephrosis. Stomach and bowel: The stomach is distended containing retained foodstuffs. There is air and stool noted in the colon.. PELVIS: Appendix: Unremarkable CT scan appearance noted the appendix.. Bladder: No calculi are noted within the bladder.. Reproductive: There are 2 lucencies in the left adnexa measuring 1.2 and 2.3 cm in size. ABDOMEN and PELVIS: Intraperitoneal space: No free air. No significant fluid collection. Bones/joints: There are mild degenerative changes in the spine.. Soft tissues: There is a 5.6 x 5.2 x 7.9 cm fluid collection in the subcutaneous fat of the medial aspect of the left buttocks. It contains small bubbles of air. There are surrounding inflammatory changes. Vasculature: No abdominal aortic aneurysm. Lymph nodes: No enlarged lymph nodes. IMPRESSION: There is a 5.6 x 5.2 x 7.9 cm fluid collection in the subcutaneous fat of the medial aspect of the left buttocks. It contains small bubbles of air. There are surrounding inflammatory changes. This appears to represent a perianal abscess. There are possible 2 left adnexal cysts. Hepatomegaly. There is a 1.5 cm partially enhancing lesion in the right kidney. Cannot exclude a renal cell carcinoma. There is a possible right renal cyst. Electronically signed by: Sotero Sandoval MD 04/05/24 00:06 AM
[2024-04-05] MEDS: MoRPHine SULFATE 4 MG/ML 1 ML CARP\\VIAL IV STA (00:17)
[2024-04-05] MEDS: CALCIUM CARBONATE 500 MG CHEWABLE TAB PO PRN (00:17)
--- NOTE | 2024-04-05 00:28 | Surgery Consultation ---
Date of Consultation April 05, 2024 Assessment & Plan (1) Perirectal abscess: I discussed with the treating clinician emergency department the patient is being admitted on the hospitalist service. From surgery perspective we recommend the following: She has been placed on antibiotics in the form of vancomycin and Zosyn which should continue. Blood cultures have been sent and these results to be followed for. The patient is tentatively scheduled for incision and drainage of perirectal abscess on 04/05/2024. Appropriate cultures will be taken at time of incision and drainage and antibiotics can be further tailored based on her clinical response as well as culture results The patient should be made n.p.o. at this time Serial labs should be followed Analgesics to be provided Antiemetics to be provided Would recommend utilizing SCDs for DVT prevention, no chemical means due to planned procedure Additional recommendations will be forthcoming based on her clinical course as unfolds as above. pt known to me from prior. discussed options/risks. will proceed with Incision and drainage of ning-anal abcess History of Present Illness Reason for Consultation: Perirectal abscess History of Present Illness This is a 48-year-old female who presented to the emergency department secondary to rectal pain. Patient does have a history of previous perirectal abscess on the left side. This was incised and drained by Dr. Gilberto Marinelli of [facility] physician of general surgery on 11/10/2023. Patient notes that following this incision and drainage it completely healed. She notes that she has been having 1 week of pain on the left side of her buttocks. She has not had any open areas or areas of drainage. She does note that over the past week it is hurt more when she had bowel movements. She has not had any fevers but has felt chilly at times. She denies any nausea or vomiting or abdominal pain. Patient says that she has been on Bactrim for approximately 6 days but this has not improved any of her symptomatology. Since arrival hospital patient has had labs and imaging which I independent reviewed. A CT scan of the pelvis and abdomen showed the patient had a 5.6 x 5.2 x 7.9 cm fluid collection in the subcutaneous fat on the medial aspect of the left buttocks. This was felt to represent a perianal abscess. Patient was also noted to have a 1.5 cm partial enhancing lesion in the kidney and a possible right renal cyst. Patient also had 2 left adnexal cyst. Labs included CBC were white blood cell count was 15.2. Hemoglobin and hematocrit were noted to be normal. Platelet count was 4 29,000. Chemistry profile showed sodium was 137 with a potassium of 3.4. BUN and creatinine are both normal. Lactic acid level was not elevated at 0.8. Urinalysis was not indicative of infection. At the time of my interview she was resting comfortably in bed and she was in no distress. Allergies Allergy/AdvReac Type Severity Reaction Status Date / Time latex Allergy Mild Verified 02/15/24 09:56 Home Medications Medication Instructions Recorded Confirmed Type lorazepam 0.5 mg tablet 0.5 - 1 mg PO HS PRN anxiety 03/29/19 04/05/24 History famotidine 20 mg tablet 20 mg PO HS 11/10/23 04/05/24 History ibuprofen 200 mg tablet (Advil) 800 mg PO Q4 PRN Pain 11/10/23 04/05/24 History losartan 50 mg tablet 50 mg PO DAILY 11/10/23 04/05/24 History Patient History Medical History Chronic diarrhea Body mass index [BMI] 35.0-35.9, adult Stomach ulcer Nicotine dependence, cigarettes, with unspecified nicotine-induced disorders Hypothyroidism Hypertension Surgical History Hx of cholecystectomy Hx of lithotripsy Family History Grandmother (Maternal) Hypertension Diabetes Grandfather (Maternal) Hypertension Mother Hypertension Social History Smoking Status: Current every day smoker Tobacco Type: Cigarettes Cigarettes Per Day: 0.5; Second Hand Exposure: No; Do You Dip or Chew Tobacco: No; Tobacco Cessation Education Requested by Patient: No Hx Alcohol Use: No Hx Substance Use: No Preferred Language: Slovenian Communication Ability: Effective 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 Beliefs That Will Affect Care: None marital status: Single Current Living Situation: Spouse Other Information That Helps Us Care for You: No Feels Safe at Home: Yes Safety Concerns: Feels Safe At This Time Assistive Devices: Glasses Review of Systems Review of Systems: All systems reviewed & are unremarkable except as noted in HPI & below Physical Exam Constitutional: WD/WN, vitals as above Eyes: no conjunctival abnormality ENMT: Ears: no hearing impairment and no external ear abnormality Mouth: no oropharynx abnormality Neck: trachea midline Respiratory: normal respiratory effort; no respiratory distress and no labored breathing Cardiovascular: Rate/Rhythm: regular rate and regular rhythm Gastrointestinal (Abdomen): Soft and nontender With a female assistant professor of nursing present I examined the patient's rectum. Patient did have an area of induration and fluctuance on the left medial aspect of her left buttocks. There is no crepitus noted in the soft tissue. There are no open areas or areas of drainage. The area was slightly warm to the touch and was somewhat tender to palpation. Musculoskeletal: No calf tenderness Skin: no rashes Neurologic: moves all extremities Psychiatric: A+Ox3, euthymic affect Results & Data Vital Signs (Past 12 Hours) Vital Signs Temp Pulse Pulse Resp BP BP Pulse Ox 04/04/24 22:30 88 20 142/76 H 96 04/04/24 22:01 100 H 20 150/105 H 98 04/04/24 21:29 100 H 04/04/24 21:21 36.6 C 107 H 18 167/89 H 95 04/04/24 19:51 36.6 C 121 H 18 189/117 H 99 O2 Del Method 04/04/24 22:30 Room Air 04/04/24 22:01 Room Air 04/04/24 21:29 04/04/24 21:21 Room Air 04/04/24 19:51 Room Air PG Care Time/CCT Total # of Minutes Spent Total Time Spent with Patient: Total time spent is greater than 50% in coordination of care (as documented) at patient's floor/unit and/or counseling patient: Coding Level of Care Code 23012 IN/OBS CONSULT LVL 5,80M Diagnoses Perirectal abscess K61.1
--- NOTE | 2024-04-05 00:40 | History & Physical Report ---
Date of Service April 05, 2024 Assessment & Plan (1) Sepsis: Plan: Sepsis secondary to recurrent perianal abscess Failed outpatient treatment SOB mild pulmonary congestion on imaging hypertension, stable GERD, patient with heartburn episodes anxiety disorder, patient very anxious on exam right renal mass, possible malignancy, patient to obtain second opinion from tertiary centers as [facility] ongoing tobacco abuse. Subclinical hypothyroidism from previous blood work Hyperglycemia rule out DM ongoing tobacco abuse Medical telemetry CS, daptomycin and Zosyn General Surgery consult Re: Recurrent perianal abscess (Patient already seen at the ED by provider. N.p.o. status recommended in anticipation of procedure in a.m.) TTE re: pulmonary congestion on imaging rule out CHF Recheck TSH Check hemoglobin A1c Nicotine patch as needed DVT prophylaxis. SCDs re: possible procedure Full code Text document was generated using [employer] voice recognition software. It may contain grammatical or spelling errors. Kindly contact undersigned for clarification of any documentation item in question. History of Present Illness Chief Complaint: Butt abscess Primary Care Provider: Bronson Kern History obtained from patient and records. Medical history significant for hypertension, GERD, anxiety disorder, right renal mass, ongoing tobacco abuse. Last confinement November 2023 for perirectal abscess status post I&D. Incidental finding of right renal mass on imaging. Outpatient urology follow-up recommended. 1 week history of achy left-sided buttock pain similar to episode last summer. Worsening symptoms. Fever chills at home. Patient called general surgeon's office who advised her to call PCPs office. Patient prescribed Bactrim course. Worsening discomfort and painful swelling. Denies chest pain or unusual cough symptoms. Some SOB without fluid retention. Vancomycin and Zosyn administered at the ER. 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 Allergies Allergy/AdvReac Type Severity Reaction Status Date / Time latex Allergy Mild Verified 02/15/24 09:56 Home Medications Medication Instructions Recorded Confirmed Type lorazepam 0.5 mg tablet 0.5 - 1 mg PO HS PRN anxiety 03/29/19 04/05/24 History famotidine 20 mg tablet 20 mg PO HS 11/10/23 04/05/24 History ibuprofen 200 mg tablet (Advil) 800 mg PO Q4 PRN Pain 11/10/23 04/05/24 History losartan 50 mg tablet 50 mg PO DAILY 11/10/23 04/05/24 History Past Med/Surg History Problem List (Updated 04/05/24 @ 08:56 by Hubert Ugalde MD) Sepsis Left buttock pain (Acute) Tachycardia (Acute) Sebaceous cyst Rupture of radial collateral ligament of thumb Sprain of ulnar collateral ligament of interphalangeal joint of thumb History of incision and drainage (11/10/23) Incision and Drainage of Perirectal Abscess with Exam Under Anesthesia(Not Applicable) - Kirill Marinelli DO Right renal mass Perirectal abscess (Acute) Medical History Chronic diarrhea Body mass index [BMI] 35.0-35.9, adult Stomach ulcer Nicotine dependence, cigarettes, with unspecified nicotine-induced disorders Hypothyroidism Hypertension Surgical History Hx of cholecystectomy Hx of lithotripsy Family History Grandmother (Maternal) Hypertension Diabetes Grandfather (Maternal) Hypertension Mother Hypertension Social History Smoking Status: Current every day smoker Tobacco Type: Cigarettes Cigarettes Per Day: 0.5; Second Hand Exposure: No; Do You Dip or Chew Tobacco: No; Tobacco Cessation Education Requested by Patient: No Hx Alcohol Use: No Hx Substance Use: No Preferred Language: Italian Communication Ability: Effective Chain Dyer Required: No Beliefs That Will Affect Care: None marital status: Single Current Living Situation: Spouse Other Information That Helps Us Care for You: No Feels Safe at Home: Yes Safety Concerns: Feels Safe At This Time Assistive Devices: Glasses Review of Systems Review of Systems: As per HPI, all other systems reviewed and negative Physical Exam Physical Exam: GENERAL: uncomfortable, anxious, obese, no respiratory distress SKIN: Normal color, warm HEENT: Bespectacled, [place] palpebral conjunctivae, no ptosis, dry buccal mucosa NECK : Supple, short neck, no tenderness CHEST : Decreased breath sounds, no tenderness HEART : Tachycardic, no obvious murmurs ABDOMEN: Some distention, nontender BUTTOCK : Tender fluctuant mass left buttock EXTREMITIES : Minimal LE swelling, no LE tenderness, no other conspicuous deformities noted NEUROLOGIC : Coherent, no facial asymmetry, no other gross focality Results & Data Results & Data Vital Signs (Past 12 Hours) Vital Signs Temp Pulse Pulse Resp BP BP Pulse Ox 04/05/24 00:17 112 H 16 131/87 98 04/04/24 22:30 88 20 142/76 H 96 04/04/24 22:01 100 H 20 150/105 H 98 04/04/24 21:29 100 H 04/04/24 21:21 36.6 C 107 H 18 167/89 H 95 04/04/24 19:51 36.6 C 121 H 18 189/117 H 99 O2 Del Method 04/05/24 00:17 Room Air 04/04/24 22:30 Room Air 04/04/24 22:01 Room Air 04/04/24 21:29 04/04/24 21:21 Room Air 04/04/24 19:51 Room Air Laboratory Results Laboratory Results WBC 15.25 K/ul (4.8-10.8) H 04/04/24 20:00 RBC 4.72 M/uL (4.20-5.40) 04/04/24 20:00 Hgb 13.9 g/dl (12.0-16.0) 04/04/24 20:00 Hct 40.8 % (37.0-47.0) 04/04/24 20:00 MCV 86.4 fL (80.0-100.0) 04/04/24 20:00 MCH 29.4 pg (25.0-34.0) 04/04/24 20:00 MCHC 34.1 g/dL (32.0-36.0) 04/04/24 20:00 RDW Std Deviation 41.4 fL (36.4-46.3) 04/04/24 20:00 RDW Coeff of Alon 13.2 % (11.5-14.5) 04/04/24 20:00 Plt Count 429 K/uL (130-400) H 04/04/24 20:00 MPV 9.2 fL (9.4-12.4) L 04/04/24 20:00 Immature Gran % (Auto) 0.5 % 04/04/24 20:00 Neut % (Auto) 85.4 % 04/04/24 20:00 Lymph % (Auto) 9.2 % 04/04/24 20:00 Foster % (Auto) 3.9 % 04/04/24 20:00 Eos % (Auto) 0.7 % 04/04/24 20:00 Baso % (Auto) 0.3 % 04/04/24 20:00 Neut # (Auto) 13.05 K/uL (1.40-6.50) H 04/04/24 20:00 Lymph # (Auto) 1.40 K/uL (1.20-3.40) 04/04/24 20:00 Foster # (Auto) 0.59 K/uL (0.11-0.59) 04/04/24 20:00 Eos # (Auto) 0.10 K/uL (0.00-0.50) 04/04/24 20:00 Baso # (Auto) 0.04 K/uL (0.00-0.20) 04/04/24 20:00 Immature Gran # (Auto) 0.07 K/uL (0.01-0.20) 04/04/24 20:00 Sodium 137 mmol/L (136-145) 04/04/24 20:00 Potassium 3.4 mmol/L (3.5-5.1) L 04/04/24 20:00 Chloride 103 mmol/L (98-107) 04/04/24 20:00 Carbon Dioxide 24 mmol/L (21-32) 04/04/24 20:00 Anion Gap 10 (3-11) 04/04/24 20:00 BUN 14 mg/dl (6-23) 04/04/24 20:00 Creatinine 0.97 mg/dl (0.6-1.2) 04/04/24 20:00 Est Cr Clr Drug Dosing 73.0 ml/min 04/04/24 20:00 eGFR 71.19 04/04/24 20:00 BUN/Creatinine Ratio 14.4 (10-20) 04/04/24 20:00 Glucose 111 mg/dl (70-99(Fasting)) H 04/04/24 20:00 Lactate 0.8 mmol/L (0.4-2.0) 04/04/24 23:10 Calcium 10.5 mg/dl (8.6-10.3) H 04/04/24 20:00 Total Bilirubin 0.4 mg/dl (0.2-1.0) 04/04/24 20:00 AST 14 U/L (13-39) 04/04/24 20:00 ALT 14 U/L (7-52) 04/04/24 20:00 Alkaline Phosphatase 66 U/L (34-104) 04/04/24 20:00 Total Protein 7.9 gm/dl (6.0-8.3) 04/04/24 20:00 Albumin 4.6 gm/dl (3.4-5.0) 04/04/24 20:00 Globulin 3.3 gm/dl (2.5-4.0) 04/04/24 20:00 Albumin/Globulin Ratio 1.4 (0.9-2) 04/04/24 20:00 Urine Color Yellow 04/04/24 21:24 Urine Appearance Cloudy (Clear) A 04/04/24 21:24 Urine pH 6.0 (4.5-7.5) 04/04/24 21:24 Ur Specific [place] 1.034 (1.000-1.030) H 04/04/24 21:24 Urine Protein Negative (Negative) 04/04/24 21:24 Urine Glucose (UA) Negative (Negative) 04/04/24 21:24 Urine Ketones Trace (Negative) H 04/04/24 21:24 Urine Blood Negative (Negative) 04/04/24 21:24 Urine Nitrite Negative (Negative) 04/04/24 21:24 Urine Bilirubin Negative (Negative) 04/04/24 21:24 Urine Urobilinogen Negative (Negative) 04/04/24 21:24 Ur Leukocyte Esterase Negative (Negative) 04/04/24 21:24 Urine WBC (Auto) 0-5 /hpf (0-5) 04/04/24 21:24 Urine RBC (Auto) 0-2 /hpf (0-2) 04/04/24 21:24 U Hyaline Cast (Auto) 0-2 /lpf (0-2) 04/04/24 21:24 U Epithel Cells (Auto) 11-20 /hpf (0-2) H 04/04/24 21:24 Urine Bacteria (Auto) None Seen (None Seen) 04/04/24 21:24 Calcium Oxalate Crystal Present (None Prsent) A 04/04/24 21:24 Impressions Abdomen/Pelvis CT 04/04/24 20:32 Exam(s): CT ABDOMEN + PELVIS With Contrast IV Amt: 94 ML OPTIRAY 320 EXAM: CT Abdomen and Pelvis With Intravenous Contrast CLINICAL HISTORY: Reason for exam: rectal pain, ?abscess. TECHNIQUE: Axial computed tomography images of the abdomen and pelvis with intravenous contrast. CTDI is 28.14 mGy and DLP is 1960.13 mGy-cm. Automated exposure control was utilized for the study. A dose lowering technique was utilized adhering to the principles of ALARA. CONTRAST: Patient received 94 ML OPTIRAY 320 of IV contrast COMPARISON: No relevant prior studies available. FINDINGS: Lung bases: No consolidation. ABDOMEN: Liver: The liver is enlarged. Gallbladder and bile ducts: The patient is status post cholecystectomy.. No ductal dilation. Pancreas: No mass. No ductal dilation. Spleen: No splenomegaly. Adrenals: No mass. Kidneys and ureters: There is a 1.5 cm inhomogeneous lesion in the right kidney. There is an 8 mm lucency within the right kidney. No hydronephrosis. Stomach and bowel: The stomach is distended containing retained foodstuffs. There is air and stool noted in the colon.. PELVIS: Appendix: Unremarkable CT scan appearance noted the appendix.. Bladder: No calculi are noted within the bladder.. Reproductive: There are 2 lucencies in the left adnexa measuring 1.2 and 2.3 cm in size. ABDOMEN and PELVIS: Intraperitoneal space: No free air. No significant fluid collection. Bones/joints: There are mild degenerative changes in the spine.. Soft tissues: There is a 5.6 x 5.2 x 7.9 cm fluid collection in the subcutaneous fat of the medial aspect of the left buttocks. It contains small bubbles of air. There are surrounding inflammatory changes. Vasculature: No abdominal aortic aneurysm. Lymph nodes: No enlarged lymph nodes. IMPRESSION: There is a 5.6 x 5.2 x 7.9 cm fluid collection in the subcutaneous fat of the medial aspect of the left buttocks. It contains small bubbles of air. There are surrounding inflammatory changes. This appears to represent a perianal abscess. There are possible 2 left adnexal cysts. Hepatomegaly. There is a 1.5 cm partially enhancing lesion in the right kidney. Cannot exclude a renal cell carcinoma. There is a possible right renal cyst. Electronically signed by: Sotero Sandoval MD 04/05/24 00:06 AM Diagnostic Findings Chest x-ray as per my interpretation elevated right hemidiaphragm, minimal congestion
[2024-04-05] MEDS ORDERED: PROMETHAZINE 12.5 MG/50.5 ML BAG IV PRN (00:44)
[2024-04-05] MEDS: VANCOMYCIN HCL 2,000 MG in SODIUM CHLORIDE 0.9% 500 ML IV ONE (00:55)
[2024-04-05] MEDS ORDERED: MoRPHine SULFATE 4 MG/ML 1 ML CARP\\VIAL IV PRN (01:11)
[2024-04-05] MEDS: ACETAMINOPHEN 500 MG TAB PO PRN (01:14)
[2024-04-05] MEDS: LORazepam 0.5 MG TAB PO PRN (01:14)
[2024-04-05] MEDS: POTASSIUM CHLORIDE CRTAB 20 MEQ TABCR PO STA (01:14)
[2024-04-05] MEDS: MAGNESIUM SULFATE / D5W 1 GM/100 ML BAG IV ONE (01:21)
[2024-04-05] MEDS: oxyCODONE HCL IR 5 MG TAB (IMMEDIATE RELEASE) PO PRN (01:50)
[2024-04-05] MEDS: FAMOTIDINE 20MG IV PUSH 20 MG/5 ML SYR IV STA (01:50)
[2024-04-05 02:17] LABS: Magnesium 1.8 mg/dl (1.7-2.4); Phosphorus 3.5 mg/dl (2.5-4.9)
--- NOTE | 2024-04-05 02:25 | XRay Report ---
EXAM: XR chest 1V portable CLINICAL HISTORY: SOB JMF TECHNIQUE: An X-ray image of the chest is obtained in AP projection. COMPARISON: No prior studies are available for comparison. FINDINGS: Pulmonary Parenchyma: Chest leads are seen An atelectatic band is seen in the right mid-zone. Faint opacification was seen in the right lung lower zone. The left lung appears normal The right hemidiaphragm is elevated. No pulmonary nodules are identified. Minimal blunting of right costophrenic angle. The left costophrenic level appears normal Heart and Mediastinum: Heart size and shape are normal. No mediastinal widening or masses. Bilateral hilar vascular congestion seen Bony Thorax: The bony thorax appears intact without fractures or deformities. Degenerative changes in the visualized spine Soft Tissues: Soft tissues overlying the chest wall are unremarkable. IMPRESSION: 1. The atelectatic band is seen in the right mid-zone. 2. Faint opacification in the right lung lower zone raises the suspicion of infection. Please correlate clinically. 3. Bilateral hilar vascular congestion. 4. Minimal blunting of right costophrenic angle likely due to pleural thickening/effusion. 5. Elevated right hemidiaphragm. Ultrasound abdomen is advised to Rule out subdiaphragmatic pathology. 6. Clinical correlation and Follow-up is advised. [facility]'s ER was called at [phone] at 1:18 AM SPECIAL NEEDS LIBRARIAN, 04/05/2024, and Nurse Rissa was informed regarding the presence of Important Medical Findings on this report. Electronically signed by Chasity Ayala 04-05-2024 02:24 AM
[2024-04-05] MEDS: KETOROLAC TROMETHAMINE 15 MG/ML VIAL IV PRN (03:10)
[2024-04-05] MEDS: KETOROLAC TROMETHAMINE 15 MG/ML VIAL IV ONE ×2 (03:45→05:06)
[2024-04-05] MEDS: PIPERACILLIN/TAZOBACTAM 4.5 GM/100 ML BAG IV SCH (05:14)
[2024-04-05 07:33] LABS: Calcium 9.5 mg/dl (8.6-10.3); Creatinine Clr Calc Pharmacy 84.2 ml/min; Potassium 4.2 mmol/L (3.5-5.1)
[2024-04-05 07:42] LABS: Hematocrit (blood only) 37.4 % (37.0-47.0); Hemoglobin 12.5 g/dl (12.0-16.0); Mean Corpuscular Hgb Conc 33.4 g/dL (32.0-36.0); Mean Corpuscular Volume 86.8 fL (80.0-100.0); Mean Platelet Volume 9.9 fL (9.4-12.4); Platelet Count 331 K/uL (130-400); RDW Coefficient of Variation 13.2 % (11.5-14.5); Red Blood Count 4.31 M/uL (4.20-5.40)
[2024-04-05 07:44] LABS: Basophils # (auto) 0.04 K/uL (0.00-0.20); Basophils % (auto) 0.3 %; Eosinophils # (auto) 0.23 K/uL (0.00-0.50); Eosinophils % (auto) 1.7 %; Immature Granulocytes # (auto) 0.06 K/uL (0.01-0.20); Immature Granulocytes % (auto) 0.4 %; Lymphocytes # (auto) 1.25 K/uL (1.20-3.40); Lymphocytes % (auto) 9.2 %; Monocytes # (auto) 0.65 K/uL (0.11-0.59); Monocytes % (auto) 4.8 %; Neutrophils # (auto) 11.37 K/uL (1.40-6.50); Neutrophils % (auto) 83.6 %
[2024-04-05 07:48] LABS: Magnesium 2.1 mg/dl (1.7-2.4); Phosphorus 4.1 mg/dl (2.5-4.9)
[2024-04-05] MEDS: DAPTOmycin 400 MG in SYRINGE 0 ML IV SCH (08:00)
[2024-04-05] MEDS: HYDROmorphone INJ 1 MG/ML SYRINGE IV PRN (08:11)
--- NOTE | 2024-04-05 08:34 | Anesthesiology Consultation ---
Date of Service April 05, 2024 Assessment & Plan Chart Review Chart Review: Acceptable Risk for Surgery and Patient NOT seen in Pre Admission Testing History Surgery Operation Date: 04/05/24 11:00 Proposed Procedures p Incision and Drainage Perirectal Abscess - Kirill Marinelli DO Height/Weight Height: 5 ft 4 in Weight: 100.2 kg Allergies Allergy/AdvReac Type Severity Reaction Status Date / Time latex Allergy Mild Verified 02/15/24 09:56 Medications Home Medications Medication Instructions Recorded Confirmed Last Taken lorazepam 0.5 mg tablet 0.5 - 1 mg PO HS PRN anxiety 03/29/19 04/05/24 2 Weeks Ago ~03/22/24 famotidine 20 mg tablet 20 mg PO HS 11/10/23 04/05/24 2 Weeks Ago ~03/22/24 ibuprofen 200 mg tablet (Advil) 800 mg PO Q4 PRN Pain 11/10/23 04/05/24 2 Weeks Ago ~03/22/24 losartan 50 mg tablet 50 mg PO DAILY 11/10/23 04/05/24 04/03/24 Active Medications Generic Name Dose Route Start Last Admin Trade Name Freq PRN Reason Stop Dose Admin Acetaminophen 500 mg 04/05/24 00:43 04/05/24 01:14 Acetaminophen 500 Mg Tab PO 05/05/24 00:42 500 mg Q6H PRN Administration fever/pain Hydromorphone HCl 1 mg 04/05/24 04:11 04/05/24 08:11 Hydromorphone Inj 1 Mg/Ml Syringe IV 04/19/24 04:10 1 mg Q4H PRN Administration Pain Piperacillin Sod/Tazobactam Sod 4.5 gm in 100 mls @ 25 mls/hr 04/05/24 06:00 04/05/24 05:14 Zosyn IV 04/15/24 05:59 25 mls/hr Q8H JOHAN Administration Protocol Daptomycin 400 mg/ Syringe 8 mls @ 4 mls/min 04/05/24 08:00 04/05/24 08:00 IV 04/15/24 07:59 4 mls/min Q24H JOHAN Administration Protocol Lorazepam 0.5 mg 04/05/24 00:38 04/05/24 01:14 Lorazepam 0.5 Mg Tab PO 05/05/24 00:37 0.5 mg Q6H PRN Administration Anxiety Oxycodone HCl 5 - 10 mg 04/05/24 00:43 04/05/24 01:50 Oxycodone Hcl Ir 5 Mg Tab (Immediate Release) PO 04/19/24 00:42 10 mg QID PRN Administration Pain Past Medical History Medical History Chronic diarrhea Body mass index [BMI] 35.0-35.9, adult Stomach ulcer Nicotine dependence, cigarettes, with unspecified nicotine-induced disorders Hypothyroidism Hypertension Past Family History Family History Grandmother (Maternal) Hypertension Diabetes Grandfather (Maternal) Hypertension Mother Hypertension Past Surgical History Surgical History Hx of cholecystectomy Hx of lithotripsy Social History Smoking Status: Current every day smoker Smoking cigarettes per day: 0.5 Do You Dip or Chew Tobacco: No Hx Alcohol Use: No Hx Substance Use: No substance use type: does not use Physical Exam Vital Signs Last Vital Signs Temp 36.9 C 04/05/24 07:56 Pulse 78 04/05/24 07:56 Resp 16 04/05/24 07:56 BP 91/61 L 04/05/24 07:56 Pulse Ox 94 04/05/24 07:56 O2 Del Method Room Air 04/05/24 07:56 Testing Laboratory Results 04/05/24 06:50 04/05/24 06:50 Urine Color Yellow 04/04/24 21:24 Urine Appearance Cloudy (Clear) A 04/04/24 21:24 Urine pH 6.0 (4.5-7.5) 04/04/24 21:24 Ur Specific [place] 1.034 (1.000-1.030) H 04/04/24 21:24 Urine Protein Negative (Negative) 04/04/24 21:24 Urine Glucose (UA) Negative (Negative) 04/04/24 21:24 Urine Ketones Trace (Negative) H 04/04/24 21:24 Urine Nitrite Negative (Negative) 04/04/24 21:24 Ur Leukocyte Esterase Negative (Negative) 04/04/24 21:24 Urine WBC (Auto) 0-5 /hpf (0-5) 04/04/24 21:24 Urine RBC (Auto) 0-2 /hpf (0-2) 04/04/24 21:24 U Hyaline Cast (Auto) 0-2 /lpf (0-2) 04/04/24 21:24 U Epithel Cells (Auto) 11-20 /hpf (0-2) H 04/04/24 21:24 Urine Bacteria (Auto) None Seen (None Seen) 04/04/24 21:24
[2024-04-05] MEDS ORDERED: LOSARTAN POTASSIUM 50 MG TAB PO SCH (09:00)
--- NOTE | 2024-04-05 09:39 | Communication Note ---
Date of Service: April 05, 2024 Pt was seen with nursing at bedside, pre-op. Pt's sister also present, sister works in the OR. Previously treated for this and had a previous I & D. States that she believes the infection never really went away. Denies fevers, chills or night sweats. Agreeable to adding IV Tylenol scheduled to help with pain management. Consider ID consult for further recs given second time in the same location. To the OR for I & D today. For the full plan of care, please see the History and Physical from the same date of service.
[2024-04-05] MEDS: ALBUMIN 25% 25 GM/100 ML VIAL IV SCH (09:45)
[2024-04-05] MEDS: SODIUM CHLORIDE 0.9% 1,000 ML IV SCH (09:45)
[2024-04-05 09:57] LABS: Thyroid Stimulating Hormone 8.963 uIu/ml (0.300-4.500)
[2024-04-05 10:14] LABS: Estimated Average Glucose 105 mg/dl; Hemoglobin A1C 5.3 % (4.5-5.6)
[2024-04-05 10:32] LABS: T4 Free Thyroxine 0.81 ng/dl (0.61-1.60)
[2024-04-05] MEDS: ACETAMINOPHEN 1,000 MG/100 ML VIAL IV SCH (12:24)
[2024-04-05] MEDS ORDERED: DEXAMETHASONE SOD INJ 4 MG/ML VIAL ONE (14:26)
[2024-04-05] MEDS ORDERED: PROPOFOL IV EMULSION 10 MG/ML 20 ML VIAL IV ONE (14:26)
[2024-04-05] MEDS ORDERED: ROCURONIUM BROMIDE 10 MG/ML 5 ML VIAL IV ONE (14:26)
[2024-04-05] MEDS ORDERED: LIDOCAINE 2% 2 ML VIAL/AMP(20MG/ML) INFIL ONE (14:26)
[2024-04-05] MEDS ORDERED: ONDANSETRON INJ 2 MG/ML 2 ML VIAL ONE (14:26)
[2024-04-05] MEDS: ONDANSETRON INJ 2 MG/ML 2 ML VIAL IV STA (14:36)
[2024-04-05] MEDS: ONDANSETRON INJ 2 MG/ML 2 ML VIAL ONE (14:36)
[2024-04-05] MEDS ORDERED: fentaNYL citrate PF 100 MCG/2 ML VIAL ONE (14:50)
[2024-04-05] MEDS ORDERED: MIDAZOLAM HCL 1 MG/ML 2ML VIAL ONE (14:50)
[2024-04-05] MEDS ORDERED: HYDROmorphone INJ 1 MG/ML SYRINGE IV PRN (15:10)
[2024-04-05] MEDS ORDERED: ePHEDrine sulfate 50 MG/ML AMP IV PRN (15:10)
[2024-04-05] MEDS ORDERED: ATROPINE SULFATE 0.1 MG/ML 10ML SYR IV PRN (15:10)
[2024-04-05] MEDS ORDERED: ONDANSETRON INJ 2 MG/ML 2 ML VIAL IV PRN (15:10)
[2024-04-05] MEDS ORDERED: KETOROLAC 30 MG/ML VIAL ONE (16:21)
--- NOTE | 2024-04-05 16:35 | Operative Report ---
PG Post Operative Report Pre & Post Diagnosis Operation Date: 04/05/24 11:00 Pre-Op Diagnosis: (1) Perirectal abscess: Post-Op Diagnosis: (1) Perirectal abscess: I identified the patient and participated in the time-out.: Yes Procedure Operation Date: 04/05/24 11:00 Actual Procedures p Incision and Drainage Perirectal Abscess(Not Applicable) - Kirill anderson DO Surgeon Kirill Marinelli DO Track Repair Laborer luis alberto Minaya Estimated Blood Loss 10 Findings Consistent with Post-Op Diagnosis Specimens abcess fluid for gram stain/culture Description of Procedure After informed consent was obtained the patient was taken to the operating room and placed in supine position. After successful placement of a laryngeal mask airway the patient was placed in a high lithotomy position. The rectum and perineum were sterilely prepped and draped in usual fashion. 15 blade scalpel was then used to make a linear incision directly over the large visible palpable abscess. This released a large amount of rather foul-smelling purulent fluid. A sample was taken and sent for Gram stain culture and sensitivity. After we suctioned out the cavity I then thoroughly irrigated it. 1 inch iodoform impregnated gauze was used to pack the wound. A sterile dressing was applied. Patient was awakened extubated and transferred to recovery in stable condition. My physician metal moulder's assistant was present through the entire case and assisted with exposure drainage and dressing placement. I attest to the content of the Intraoperative Record and any orders documented therein. Any exceptions are noted below.
[2024-04-05] MEDS: fentaNYL citrate PF 100 MCG/2 ML VIAL IV PRN (16:55)
--- NOTE | 2024-04-05 16:55 | Anesthesiology Progress Note ---
Date of Service April 05, 2024 Anesthesia Post Procedure Vital Signs Vital Signs: Temp Pulse Pulse Pulse Pulse Resp BP 04/05/24 16:45 91 H 18 04/05/24 16:35 88 18 04/05/24 16:26 36 C L 97 H 16 04/05/24 14:18 36.8 C 76 18 04/05/24 13:42 73 04/05/24 12:07 37.2 C 83 20 04/05/24 08:00 04/05/24 07:56 36.9 C 78 16 04/05/24 06:00 75 04/05/24 04:15 04/05/24 04:14 94 H 04/05/24 02:00 92 H 20 110/75 04/05/24 01:30 96 H 20 131/91 04/05/24 00:30 93 H 20 122/66 04/05/24 00:17 112 H 16 131/87 04/04/24 22:30 88 20 142/76 H 04/04/24 22:01 100 H 20 150/105 H 04/04/24 21:29 100 H 04/04/24 21:21 36.6 C 107 H 18 04/04/24 19:51 36.6 C 121 H 18 189/117 H BP Pulse Ox O2 Del Method O2 Flow Rate 04/05/24 16:45 106/70 95 Room Air 04/05/24 16:35 107/68 99 Oxymask 6 04/05/24 16:26 97/74 L 94 Oxymask 8 04/05/24 14:18 116/68 96 Room Air 04/05/24 13:42 04/05/24 12:07 108/70 96 Room Air 04/05/24 08:00 Room Air 04/05/24 07:56 91/61 L 94 Room Air 04/05/24 06:00 04/05/24 04:15 Room Air 04/05/24 04:14 04/05/24 02:00 96 Room Air 04/05/24 01:30 97 Room Air 04/05/24 00:30 97 Room Air 04/05/24 00:17 98 Room Air 04/04/24 22:30 96 Room Air 04/04/24 22:01 98 Room Air 04/04/24 21:29 04/04/24 21:21 167/89 H 95 Room Air 04/04/24 19:51 99 Room Air Pain Intensity Rectal: Pain Intensity: 8 Transfer of Care Handoff Completed per policy Notes Mental Status: alert / awake / arousable and participated in evaluation Patient Amnestic to Procedure: Yes Nausea / Vomiting: adequately controlled Pain: adequately controlled Airway Patency, RR, SpO2: stable & adequate BP & HR: stable & adequate Hydration State: stable & adequate Anesthetic Complications: no major complications apparent and Pt Satisfied with anesthetic care
[2024-04-05] MEDS: NSS + 20MEQ KCL 20 MEQ/1,000 ML BAG IV ONE (17:45)
[2024-04-05] MEDS: FAMOTIDINE 20 MG TAB PO SCH (21:32)
[2024-04-06 05:54] LABS: Hematocrit (blood only) 32.7 % (37.0-47.0); Mean Corpuscular Hemoglobin 29.3 pg (25.0-34.0); Mean Corpuscular Hgb Conc 33.6 g/dL (32.0-36.0); Mean Corpuscular Volume 87.2 fL (80.0-100.0); Mean Platelet Volume 10.4 fL (9.4-12.4); Platelet Count 326 K/uL (130-400); RDW Coefficient of Variation 13.1 % (11.5-14.5); Red Blood Count 3.75 M/uL (4.20-5.40); White Blood Count 14.83 K/ul (4.8-10.8)
[2024-04-06 06:07] LABS: BUN Creatinine Ratio 16.5 (10-20); Calcium 8.7 mg/dl (8.6-10.3); Creatinine Clr Calc Pharmacy 91.1 ml/min; Potassium 4.4 mmol/L (3.5-5.1)
[2024-04-06 06:20] LABS: Basophils # (auto) 0.01 K/uL (0.00-0.20); Basophils % (auto) 0.1 %; Echinocytes 1+; Immature Granulocytes % (auto) 0.7 %; Lymphocytes # (auto) 0.75 K/uL (1.20-3.40); Lymphocytes % (auto) 5.1 %; Monocytes # (auto) 0.56 K/uL (0.11-0.59); Monocytes % (auto) 3.8 %; Neutrophils # (auto) 13.41 K/uL (1.40-6.50); Neutrophils % (auto) 90.3 %; Polychromasia 1+
[2024-04-06] MEDS: PNEUMOCOCCAL VACCINE (PCV20) 20-VAL CONJ-DIP CRM/PF 0.5 ML SYR IM ONE (09:44)
--- NOTE | 2024-04-06 10:28 | Surgery Progress Note ---
Date of Service April 06, 2024 Assessment & Plan (1) Perirectal abscess: Plan: Postoperative day #1 Doing well Would be okay for discharge on oral antibiotics from our standpoint Will likely need home nursing to help with packing and dressing changes Admission and Anticipated Discharge Date Admission Date: April 05, 2024 Subjective Patient seen. Overall feeling better Physical Exam Physical Exam: The wound looks great. Swelling and erythema dramatically decreased Packing removed and changed. Mostly some blood with minimal purulence Results & Data Vital Signs (Past 12 Hours) Vital Signs Temp Pulse Resp BP Pulse Ox O2 Del Method 04/06/24 08:48 36.8 C 64 19 100/66 94 Room Air 04/06/24 03:00 36.8 C 77 16 109/70 96 Room Air 04/05/24 23:16 36.7 C 81 16 113/71 93 Room Air PG Care Time/CCT Total # of Minutes Spent Total Time Spent with Patient: Total time spent is greater than 50% in coordination of care (as documented) at patient's floor/unit and/or counseling patient: Coding Level of Care Code 44982 Post Operative Follow-Up Diagnoses Perirectal abscess K61.1
[2024-04-06 12:06] VITALS: RESP 16; TEMP 98.1; O2SAT 97
--- NOTE | 2024-04-06 13:17 | Discharge Summary ---
Discharge Summary Date of Service April 06, 2024 Principal Dx & Hospital Course #1 = Principal Diagnosis (1) Sepsis: Ms. Prather is a 48-year-old female with past medical history significant for hypertension, kidney stones, who presented with pain in her rectal region and found to have a perirectal abscess and sepsis. This is the second recurrence of perianal abscess. Patient went to OR on 04/05 with subsequent drainage with good post op recovery. Patient instructed on packing and wound care. Patient sent home with 2 weeks of Augmentin. #Sepsis secondary to recurrent perianal abscess, resolved s/p ID, discharged with home health and 2 weeks augmentin GS and wound care follow up arranged. #hyperglycemia A1C 5.3% on admission #Pul congestion on imaging Stable ECHO, euvolemic on exam Notes For Next Care Provider Medication Changes From Visit Augmentin BID x 2 weeks Admission HPI Per Admitting Provider History obtained from patient and records. Medical history significant for hypertension, GERD, anxiety disorder, right renal mass, ongoing tobacco abuse. Last confinement November 2023 for perirectal abscess status post I&D. Incidental finding of right renal mass on imaging. Outpatient urology follow-up recommended. 1 week history of achy left-sided buttock pain similar to episode last summer. Worsening symptoms. Fever chills at home. Patient called general surgeon's office who advised her to call PCPs office. Patient prescribed Bactrim course. Worsening discomfort and painful swelling. Denies chest pain or unusual cough symptoms. Some SOB without fluid retention. Vancomycin and Zosyn administered at the ER. 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 Admission Exam Per Admitting Provider GENERAL: uncomfortable, anxious, obese, no respiratory distress SKIN: Normal color, warm HEENT: Bespectacled, [place] palpebral conjunctivae, no ptosis, dry buccal mucosa NECK : Supple, short neck, no tenderness CHEST : Decreased breath sounds, no tenderness HEART : Tachycardic, no obvious murmurs ABDOMEN: Some distention, nontender BUTTOCK : Tender fluctuant mass left buttock EXTREMITIES : Minimal LE swelling, no LE tenderness, no other conspicuous deformities noted NEUROLOGIC : Coherent, no facial asymmetry, no other gross focality Discharge Exam Constitutional WD/WN, vitals as above Respiratory normal respiratory effort, lungs clear to auscultation Cardiovascular RRR, no murmur, no edema Musculoskeletal no cyanosis or clubbing, extremities motor strength 5/5 Updated Medication List Medication Instructions Recorded Confirmed Type lorazepam 0.5 mg tablet 0.5 - 1 mg PO HS PRN anxiety 03/29/19 04/05/24 History famotidine 20 mg tablet 20 mg PO HS 11/10/23 04/05/24 History ibuprofen 200 mg tablet (Advil) 800 mg PO Q4 PRN Pain 11/10/23 04/05/24 History losartan 50 mg tablet 50 mg PO DAILY 11/10/23 04/05/24 History amoxicillin 875 mg-potassium 1 tab PO Q12H 14 days #28 tabs 04/06/24 Rx clavulanate 125 mg tablet oxycodone 5 mg tablet 5 mg PO Q4H PRN pain #20 tabs 04/06/24 Rx Hospital Stay Data Procedures Performed Operation Date: 04/05/24 11:00 Actual Procedures p Incision and Drainage Perirectal Abscess(Not Applicable) - Kirill Marinelli, Diagnostic Imagining Performed 04/04/24 20:32 CT abd pelvis IV con only Stat Pending Results Patient Have Any Pending Studies at Discharge: Yes (wound culture) Discharge Instructions Given to Patient (Per Discharging Provider) -You may take warm tub soaks/sitz baths 3-4x/daily for comfort and cleansing of the area -Avoid constipation, drink plenty of water and keep well hydrated -You may purchase a stool softener over the counter if needed such as colace or miralax -You may purchase Tylenol and/or Ibuprofen over the counter if needed for additional pain control over the next few days. Take per manufacturers instructions Wound Care: Change dressing daily, pack area lightly with 1/2" plain nu-gauze, dry 4x4 gauze and ABD overtop. You may secure lightly with tape or wear a tight fitting undergarment to keep dressing in place. Please complete the full course of antibiotic prescribed to you Total Time Total Time Spent Total Time Spent (In Minutes): 45
[2024-04-06 13:29] VITALS: BP 111/70; PULSE 82
[2024-04-06] MEDS: AMOXICILLIN/CLAVULANATE 875 MG TAB PO ONE (15:53)
== END 2024-04-06 16:15 | disposition home health service (06) | DRG 854 ==
LOC: ED 19:49 → 2W 04-05 00:42 → SUATTDRO 04-05 00:42 → 2W 04-05 02:06